=== PATIENT | female | born 1945 | race Caucasian/White ===

== ENCOUNTER → 2017-04-30 | Outpatient (CLI) | payer MEDICARE ==
--- NOTE | 2017-05-03 06:44 | MM ---
Reason for exam: clinical finding. Last mammogram was performed 11 months ago. History: Patient is postmenopausal. Family history of breast cancer in paternal aunt and breast cancer in cousin. Took estrogen for 16 years. Physical Findings: Nurse did not find any significant physical abnormalities on exam. MG 3D Diag Mammo W/Cad AMARA Bilateral CC and MLO view(s) were taken. Prior study comparison: May 25, 2016, bilateral MG 3d screening mammo w/cad. April 16, 2015, bilateral MG diagnostic yamini BI wo CAD. The breast tissue is extremely dense which could obscure a lesion on mammography. Finding: There are typically benign round, diffuse/scattered calcifications in both breasts. No significant changes in finding since May 25, 2016 and April 16, 2015. These results were verbally communicated with the patient and result sheet given to the patient on 04/30/17. ASSESSMENT: Benign, BI-RAD 2 RECOMMENDATION: Routine screening mammogram of both breasts in 1 year. Manage patient on a clinical basis.
== END | disposition home or self-care (01) ==
LOC: RADMAMWWP 13:40
PROVIDERS: ATTEND Family Medicine
DX: R92.8 Other abnormal and inconclusive findings on diagnostic imaging of breast (principal)
CPT/HCPCS: G0204; G0279

== ENCOUNTER 2018-03-25 20:54 | Emergency (ER) | payer MEDICARE ==
[2018-03-25 21:06] VITALS: BP 184/77; PULSE 66; RESP 20; TEMP 97.6
[2018-03-25] MEDS ORDERED: SODIUM CHLORIDE 0.9% 500 ML IV ONE (21:16)
--- NOTE | 2018-03-25 21:17 | ED ---
General Adult HPI - General Chief complaint: Recheck/Abnormal Lab/Rx Stated complaint: Abn labs Time Seen by Provider: 03/25/18 21:09 Source: patient, RN notes reviewed, old records reviewed Mode of arrival: ambulatory Limitations: no limitations - History of Present Illness Initial comments: 72-year-old female presenting for evaluation of hyperkalemia. Patient was called by her primary care physician and instructed to present to the emergency department with elevated potassium. Patient has no complaints. No chest pain or shortness breath. 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 No history of hypertension. She has been making urine normally. No nausea or vomiting. She does have some mild diarrhea which is also not abnormal for her. No fever or chills. - Related Data Home Medications Medication Instructions Recorded Confirmed Ascorbic Acid [Vitamin C] 500 mg PO DAILY 03/25/18 03/25/18 Calcium Carbonate [Calcium] 600 mg PO DAILY 03/25/18 03/25/18 Cyanocobalamin [Vitamin B-12] 500 mcg PO DAILY 03/25/18 03/25/18 Krill Oil 500 mg PO DAILY 03/25/18 03/25/18 Obeticholic Acid [Ocaliva] 5 mg PO DAILY 03/25/18 03/25/18 [place]-3 Fatty Acids/Fish Oil [Fish 1 cap PO DAILY 03/25/18 03/25/18 Oil 1,000 mg Softgel] Pantoprazole Sodium [Protonix] 40 mg PO DAILY 03/25/18 03/25/18 Ursodiol 900 mg PO DAILY 03/25/18 03/25/18 Vit C/E/Zn/Coppr/Lutein/Zeaxan 1 cap PO DAILY 03/25/18 03/25/18 [Preservision Areds 2 Softgel] Zolpidem [Ambien] 10 mg PO HS 03/25/18 03/25/18 Allergies Allergy/AdvReac Type Severity Reaction Status Date / Time No Known Allergies Allergy Verified 03/25/18 21:31 Review of Systems ROS Statement: Those systems with pertinent positive or pertinent negative responses have been documented in the HPI. ROS Other: All systems not noted in ROS Statement are negative. 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 Absent: tenderness, meningismus Respiratory exam: Present: normal lung sounds bilaterally. Absent: respiratory distress Cardiovascular Exam: Present: regular rate, normal rhythm GI/Abdominal exam: Present: soft, distended, tenderness (Mild generalized tenderness to palpation). Absent: guarding, rebound Extremities exam: Present: normal inspection, normal capillary refill. Absent: pedal edema, joint swelling Neurological exam: Present: alert, oriented X3, CN II-XII intact. Absent: motor sensory deficit Psychiatric exam: Present: normal affect, normal mood Skin exam: Present: warm, dry, intact. Absent: cyanosis, diaphoretic Course Vital Signs 03/25/18 21:01 Temperature 97.6 F Pulse Rate 66 Respiratory 20 Rate Blood Pressure 184/77 O2 Sat by Pulse 99 Oximetry Medical Decision Making - Medical Decision Making 72-year-old female presenting for elevated potassium on outpatient laboratory studies, patient had a potassium is 6.6. This level was redrawn and his normal 3.8. This does represent likely lab abnormality. Patient has no kidney disease , creatinine and BUS are normal. Urinalysis is clear. 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 Her white blood cell count is 1.8. She has an absolute neutrophil count of 800. She is informed of this and will follow-up with her liver specialist and primary care physician. She will return with fever. Diagnosis: Lab abnormality. - Lab Data Result diagrams: 03/25/18 21:25 03/25/18 21:25 Lab Results 03/25/18 03/25/18 03/25/18 Range/Units 21:25 21:25 21:25 WBC 1.9 L* (3.8-10.6) k/uL RBC 3.79 L (3.80-5.40) m/uL Hgb 10.8 L (11.4-16.0) gm/dL Hct 33.5 L (34.0-46.0) % MCV 88.4 (80.0-100.0) fL MCH 28.6 (25.0-35.0) pg MCHC 32.4 (31.0-37.0) g/dL RDW 13.9 (11.5-15.5) % Plt Count 87 L (150-450) k/uL Neutrophils % 40 % Lymphocytes % 41 % Monocytes % 11 % Eosinophils % 5 % Basophils % 0 % Neutrophils # 0.8 L (1.3-7.7) k/uL Lymphocytes # 0.8 L (1.0-4.8) k/uL Monocytes # 0.2 (0-1.0) k/uL Eosinophils # 0.1 (0-0.7) k/uL Basophils # 0.0 (0-0.2) k/uL Sodium 144 (137-145) mmol/L Potassium 3.8 (3.5-5.1) mmol/L Chloride 104 (98-107) mmol/L Carbon Dioxide 28 (22-30) mmol/L Anion Gap 12 mmol/L BUN 17 (7-17) mg/dL Creatinine 0.70 (0.52-1.04) mg/dL Est GFR (CKD-EPI)AfAm >90 (>60 ml/min/1.73 sqM) Est GFR (CKD-EPI)NonAf 88 (>60 ml/min/1.73 sqM) Glucose 107 H (74-99) mg/dL Calcium 9.0 (8.4-10.2) mg/dL Magnesium 2.0 (1.6-2.3) mg/dL Total Bilirubin 0.4 (0.2-1.3) mg/dL AST 41 H (14-36) U/L ALT 41 (9-52) U/L Alkaline Phosphatase 120 (38-126) U/L Total Protein 6.7 (6.3-8.2) g/dL Albumin 3.9 (3.5-5.0) g/dL Urine Color Yellow Urine Appearance Clear (Clear) Urine pH 6.0 (5.0-8.0) Ur Specific [place] 1.013 (1.001-1.035) Urine Protein Negative (Negative) Urine Glucose (UA) Negative (Negative) Urine Ketones Negative (Negative) Urine Blood Negative (Negative) Urine Nitrite Negative (Negative) Urine Bilirubin Negative (Negative) Urine Urobilinogen <2.0 (<2.0) mg/dL Ur Leukocyte Esterase Negative (Negative) Disposition Clinical Impression: Hyperkalemia Disposition: HOME SELF-CARE Condition: Good Additional Instructions: Please follow up with your liver specialist and primary care physician. Is patient prescribed a controlled substance at d/c from ED?: No Referrals: Jeff Brunson MD [Primary Care Provider] - 1-2 days Time of Disposition: 22:11
[2018-03-25 21:37] LABS: Basophils % (A) 0 %; Eosinophils # (A) 0.1 k/uL (0-0.7); Eosinophils % (A) 5 %; HCT 33.5 % (34.0-46.0); HGB 10.8 gm/dL (11.4-16.0); Lymphocytes # (A) 0.8 k/uL (1.0-4.8); Lymphocytes % (A) 41 %; MCH 28.6 pg (25.0-35.0); MCHC 32.4 g/dL (31.0-37.0); MCV 88.4 fL (80.0-100.0); Mean Platelet Volume 9.6; Monocytes # (A) 0.2 k/uL (0-1.0); Monocytes % (A) 11 %; Neutrophils # (A) 0.8 k/uL (1.3-7.7); Neutrophils % (A) 40 %; Platelet Count 87 k/uL (150-450); RBC 3.79 m/uL (3.80-5.40); RDW 13.9 % (11.5-15.5)
[2018-03-25 21:41] LABS: Appearance,Urine Clear (Clear); Bilirubin,Urine Negative (Negative); Blood,Urine Negative (Negative); Color,Urine Yellow; Glucose,Urine (UA) Negative (Negative); Ketones,Urine Negative (Negative); Leukocyte Esterase,Urine Negative (Negative); Nitrite,Urine Negative (Negative); Protein,Urine Negative (Negative); Specific Gravity,Urine 1.013 (1.001-1.035); Urobilinogen,Urine <2.0 mg/dL (<2.0)
[2018-03-25 21:48] LABS: WBC 1.9 k/uL (3.8-10.6)
[2018-03-25 21:49] LABS: ALT 41 U/L (9-52); AST 41 U/L (14-36); Albumin 3.9 g/dL (3.5-5.0); Alkaline Phosphatase 120 U/L (38-126); Anion Gap 12 mmol/L; Blood Urea Nitrogen 17 mg/dL (7-17); Carbon Dioxide 28 mmol/L (22-30); Chloride 104 mmol/L (98-107); Glucose 107 mg/dL (74-99); Potassium 3.8 mmol/L (3.5-5.1); Sodium 144 mmol/L (137-145); Total Bilirubin 0.4 mg/dL (0.2-1.3); Total Protein 6.7 g/dL (6.3-8.2)
== END 2018-03-25 22:20 | disposition home or self-care (01) ==
LOC: EC 20:54
DX: E87.5 Hyperkalemia (principal); R10.84 Generalized abdominal pain; R19.7 Diarrhea, unspecified; Z87.19 Personal history of other diseases of the digestive system; Z79.899 Other long term (current) drug therapy
CPT/HCPCS: 36415; 80053; 81003; 83735; 85025; 96360; 99284

== ENCOUNTER → 2018-05-09 | Outpatient (CLI) | payer MEDICARE ==
--- NOTE | 2018-05-09 14:07 | MM ---
Reason for exam: additional evaluation requested from prior study. Last mammogram was performed 1 year ago. History: Patient is postmenopausal. Family history of breast cancer in paternal aunt and breast cancer in cousin. Took estrogen for 16 years. Physical Findings: Nurse Summary: 2cm nodule in the right breast at 10-11 o'clock (nurse dw). MG 3D Diag Mammo W/Cad AMARA Bilateral CC and MLO view(s) were taken. Prior study comparison: April 30, 2017, bilateral MG 3d diag mammo w/cad AMARA. May 25, 2016, bilateral MG 3d screening mammo w/cad. The breast tissue is extremely dense which could obscure a lesion on mammography. There is no discrete abnormality at BB. No significant new findings when compared with previous films. These results were verbally communicated with the patient and result sheet given to the patient on 05/09/18. ASSESSMENT: Incomplete: need additional imaging evaluation, BI-RAD 0 RECOMMENDATION: Ultrasound of the right breast.
--- NOTE | 2018-05-09 14:09 | USB ---
Reason for exam: additional evaluation requested from abnormal screening. History: Patient is postmenopausal. Family history of breast cancer in paternal aunt and breast cancer in cousin. Took estrogen for 16 years. US Breast Limited RT Right complete breast ultrasound includes all four quadrants, the retroareolar region and axilla. Finding demonstrates no cystic or solid lesion seen. 11 o'clock palpable, dense tissue. These results were verbally communicated with the patient and result sheet given to the patient on 05/09/18. ASSESSMENT: Negative, BI-RAD 1 RECOMMENDATION: Routine screening mammogram of both breasts in 1 year. Manage patient on a clinical basis.
== END | disposition home or self-care (01) ==
LOC: RADMAMWWP 12:46
PROVIDERS: ATTEND Family Medicine
DX: R92.8 Other abnormal and inconclusive findings on diagnostic imaging of breast (principal)
CPT/HCPCS: 77066; 76642; G0279; 77062

== ENCOUNTER → 2018-08-09 | Outpatient (CLI) | payer MEDICARE ==
--- NOTE | 2018-08-09 16:15 | US ---
EXAMINATION TYPE: US kidneys/renal and bladder DATE OF EXAM: 08/09/2018 COMPARISON: CT abdomen and pelvis April 25, 2015 CLINICAL HISTORY: R31.9 Hematuria. Prior renal stones per patient history; liver disorder and enlarge d spleen per patient. EXAM MEASUREMENTS: Right Kidney: 9.2 x 4.9 x 4.8 cm Left Kidney: 10.0 x 4.9 x 4.1 cm Post Void Residual Volume: 11.1 mL Right Kidney: lower pole clustered calcification with posterior shadowing = 0.9 x 0.6 x 0.4c; mid la teral pole shadowing calcification noted = 0.6 x 0.4 x 0.4cm Left Kidney: superior pole simple cyst is noted =1.1 x 0.8 x 1.0cm; superior pole central sinus fluid is seen Bladder: wnl Bilateral Jets seen: yes Normal Post Void Residual: yes There is no evidence for hydronephrosis at this point in time. The urinary bladder is anechoic. Bila teral ureteral jets are seen. IMPRESSION: Redemonstration of nonobstructing right renal calculi. No hydronephrosis is evident bilaterally.
== END | disposition home or self-care (01) ==
LOC: RADUSWWP 15:24
PROVIDERS: ATTEND Family Medicine
DX: N20.0 Calculus of kidney (principal)
CPT/HCPCS: 76770

== ENCOUNTER → 2018-08-09 | Outpatient (CLI) | payer MEDICARE ==
[2018-08-09 17:00] LABS: HCT 37.7 % (34.0-46.0); MCH 29.7 pg (25.0-35.0); MCHC 31.9 g/dL (31.0-37.0); Mean Platelet Volume 8.3; RBC 4.05 m/uL (3.80-5.40); RDW 14.8 % (11.5-15.5); WBC 2.5 k/uL (3.8-10.6)
[2018-08-09 17:11] LABS: Prothrombin Time 9.8 sec (9.0-12.0)
[2018-08-09 17:13] LABS: ALT 39 U/L (9-52); AST 39 U/L (14-36); Albumin 4.1 g/dL (3.5-5.0); Alkaline Phosphatase 150 U/L (38-126); Anion Gap 7 mmol/L; Bilirubin, Delta 0.1 mg/dL (0.0-0.2); Bilirubin,Unconjugated 0.8 mg/dL (0.0-1.1); Blood Urea Nitrogen 14 mg/dL (7-17); Calcium 8.9 mg/dL (8.4-10.2); Carbon Dioxide 28 mmol/L (22-30); Chloride 104 mmol/L (98-107); Glucose 96 mg/dL (74-99); Potassium 4.2 mmol/L (3.5-5.1); Sodium 139 mmol/L (137-145); Total Bilirubin 0.9 mg/dL (0.2-1.3); Total Protein 7.3 g/dL (6.3-8.2)
[2018-08-09 18:38] LABS: Platelet Count 81 k/uL (150-450)
== END ==
LOC: LABWHC1 16:09
PROVIDERS: ATTEND Internal Medicine Gastroenterology
DX: K74.3 Primary biliary cirrhosis (principal)
CPT/HCPCS: 36415; 80048; 80076; 82105; 85027; 85610

== ENCOUNTER → 2018-10-11 | Outpatient (CLI) | payer MEDICARE ==
[2018-10-11 13:48] LABS: Basophils % (A) 1 %; Eosinophils # (A) 0.1 k/uL (0-0.7); Eosinophils % (A) 4 %; HCT 37.7 % (34.0-46.0); HGB 12.1 gm/dL (11.4-16.0); Lymphocytes # (A) 0.7 k/uL (1.0-4.8); Lymphocytes % (A) 34 %; MCH 30.6 pg (25.0-35.0); MCHC 32.1 g/dL (31.0-37.0); MCV 95.5 fL (80.0-100.0); Mean Platelet Volume 9.6; Monocytes # (A) 0.2 k/uL (0-1.0); Monocytes % (A) 9 %; Neutrophils % (A) 50 %; RBC 3.95 m/uL (3.80-5.40); RDW 13.9 % (11.5-15.5); WBC 2.1 k/uL (3.8-10.6)
[2018-10-11 13:52] LABS: Platelet Count 84 k/uL (150-450)
== END | disposition home or self-care (01) ==
LOC: LABWHC1 12:18
PROVIDERS: ATTEND Internal Medicine
DX: D61.818 Other pancytopenia (principal)
CPT/HCPCS: 36415; 85025

== ENCOUNTER 2019-04-10 09:36 | Inpatient (IN) | payer MEDICARE ==
[2019-04-10] MEDS ORDERED: SODIUM CHLORIDE 0.9% 1,000 ML IV ONE (10:16)
--- NOTE | 2019-04-10 10:20 | ED ---
Recheck HPI - General Chief Complaint: Recheck/Abnormal Lab/Rx Stated Complaint: Fever/poss uti Time Seen by Provider: 04/10/19 10:06 Source: patient Mode of arrival: ambulatory Limitations: no limitations - History of Present Illness Initial Comments: 73-year-old female presenting today for chief complaint of fever. Patient states that she has history of primary biliary cirrhosis, and recent leukopenia of unknown origin presenting today for chief complaint of fever and UTI symptoms. Patient states that for the past week she has had dysuria urgency frequency she states she began to develop low midline belly pain and back pain. She describes the pain as a pressure in the mid abdomen without radiation, with aching pain in the b/l mid/lower back on the sides. She states she feels this is in the kidney region. Patient states that this feels identical to when she's had a urinary tract infection in the past. Patient states that she was told by her agricultural equipment sales engineer Dr. Dominguez issues ever to develop a fever due to her low white blood cell count she needs to presents to the emergency department. Patient states that her temperature was >100.5F this AM and she presented to the ER for treatment and evaluation. Patient states she does have some nausea she states this is typical of her biliary cirrhosis. Patient denies any new upper abdominal pain she states she does have a history of splenomegaly, and chronic upper abdominal pain due to the liver cirrhosis. Patient denies any chest pain shortness of breath and dizziness headache vomiting melena hematochezia diarrhea or abdominal distention cough congestion sore throat, remaining review of system negative. - Related Data Home Medications Medication Instructions Recorded Confirmed Ascorbic Acid [Vitamin C] 500 mg PO DAILY 03/25/18 04/10/19 Calcium Carbonate [Calcium] 600 mg PO DAILY 03/25/18 04/10/19 Cyanocobalamin [Vitamin B-12] 500 mcg PO DAILY 03/25/18 04/10/19 Krill Oil 500 mg PO DAILY 03/25/18 04/10/19 Obeticholic Acid [Ocaliva] 5 mg PO DAILY 03/25/18 04/10/19 [place]-3 Fatty Acids/Fish Oil [Fish 1 cap PO DAILY 03/25/18 04/10/19 Oil 1,000 mg Softgel] Ursodiol 900 mg PO DAILY 03/25/18 04/10/19 Vit C/E/Zn/Coppr/Lutein/Zeaxan 1 cap PO DAILY 03/25/18 04/10/19 [Preservision Areds 2 Softgel] Zolpidem [Ambien] 10 mg PO HS 03/25/18 04/10/19 PARoxetine HCL [Paxil] 40 mg PO DAILY 04/10/19 04/10/19 Allergies Allergy/AdvReac Type Severity Reaction Status Date / Time No Known Allergies Allergy Verified 04/10/19 10:16 Review of Systems ROS Statement: Those systems with pertinent positive or pertinent negative responses have been documented in the HPI. ROS Other: All systems not noted in ROS Statement are negative. Past Medical History Additional Past Medical History / Comment(s): primary biliary cirrhosis History of Any Multi-Drug Resistant Organisms: None Reported Past Surgical History: Hysterectomy, Orthopedic Surgery Past Psychological History: No Psychological Hx Reported Smoking Status: Never smoker Past Alcohol Use History: None Reported Past Drug Use History: None Reported General Exam - General Exam Comments Initial Comments: General: The patient is awake and alert, in no distress Eye: +3 mm pupils are equal, round and reactive to light, extra-ocular movements are intact. No nystagmus. There is normal conjunctiva bilaterally. No signs of icterus. No photophobia Ears, nose, mouth and throat: There are moist mucous membranes and no oral lesions. Oropharynx was not erythematous there is no tonsillar enlargement exudates or lesions. Uvula midline. TNo anterior cervical lymphadenopathy. No rhinorrhea. Neck: The neck is supple, there is no tenderness or JVD. No nuchal rigidity negative Brudzinski and Kernig Cardiovascular: There is a regular rate and rhythm. No murmur, rub or gallop is appreciated. Respiratory: Lungs are clear to auscultation, respirations are non-labored, breath sounds are equal. No wheezes, stridor, rales, or rhonchi. No retractions or abdominal breathing. Gastrointestinal: Soft, non-distended, superior lateral margin mildly tender to palpation remaining abdomen without tenderness, masses or organomegaly noted. There is no rebound or guarding present. Bowel sounds are unremarkable. Musculoskeletal: Normal ROM, no tenderness. Strength 5/5. Sensation intact. Radial pulses equal bilaterally 2+. Neurological: A&O x 3. CN II-XII intact, There are no obvious motor or sensory deficits. Coordination appears grossly intact. Speech appears normal, no muffling. Skin: Skin is warm and dry and no rashes or lesions are noted. No extremity edema Psychiatric: Cooperative Limitations: no limitations Course Vital Signs 04/10/19 04/10/19 04/10/19 09:41 11:45 13:41 Temperature 101.1 F H 100.1 F H 98.5 F Pulse Rate 77 72 75 Respiratory 18 20 20 Rate Blood Pressure 129/67 117/56 109/55 O2 Sat by Pulse 95 100 98 Oximetry Medical Decision Making - Medical Decision Making 73-year-old female presenting today for chief complaint of dysuria or urgency frequency. Patient amidst a fever. Patient states she has had recent appointment with hematology due to low white blood cell count. Upon arrival patient is febrile. Urinalysis revealed nitrates and findings consistent with infection possible developing pyelonephritis. Patient is given ceftriaxone emergency department. Patient states that 4.1 is an elevation compared for normal white blood cell count. Patient has noted mild hypokalemia, as well as hyponatremia. Potassium was replaced orally. Remaining laboratory studies within acceptable limits. Pt provided with IV hydration in the ER. Does not appear toxic/does not meet SIRS criteria. Patient appears well no signs of acute distress. Patient is provided ibuprofen for fever management as patient has no primary biliary cirrhosis, will avoid Tylenol use. After discussing the case by attending provider Dr. Jewell we feel patient should be admitted for IV antibiotics. Patient is agreeable with Plan and admission. Blood cultures are pending. Dr. Jewell spoke with the admitting provider Dr. Sweeney prior to patient transfer to the floor. - Lab Data Result diagrams: 04/10/19 10:53 04/10/19 10:53 Lab Results 04/10/19 04/10/19 04/10/19 Range/Units 10:53 10:53 10:53 WBC 4.1 (3.8-10.6) k/uL RBC 3.40 L (3.80-5.40) m/uL Hgb 9.9 L (11.4-16.0) gm/dL Hct 29.2 L (34.0-46.0) % MCV 85.8 (80.0-100.0) fL MCH 29.2 (25.0-35.0) pg MCHC 34.0 (31.0-37.0) g/dL RDW 14.8 (11.5-15.5) % Plt Count 60 L (150-450) k/uL Neutrophils % 76 % Lymphocytes % 9 % Monocytes % 10 % Eosinophils % 3 % Basophils % 0 % Neutrophils # 3.1 (1.3-7.7) k/uL Lymphocytes # 0.4 L (1.0-4.8) k/uL Monocytes # 0.4 (0-1.0) k/uL Eosinophils # 0.1 (0-0.7) k/uL Basophils # 0.0 (0-0.2) k/uL Manual Slide Review Performed PT (9.0-12.0) sec INR (<1.2) APTT (22.0-30.0) sec Sodium 134 L (137-145) mmol/L Potassium 3.3 L (3.5-5.1) mmol/L Chloride 102 (98-107) mmol/L Carbon Dioxide 24 (22-30) mmol/L Anion Gap 8 mmol/L BUN 11 (7-17) mg/dL Creatinine 0.57 (0.52-1.04) mg/dL Est GFR (CKD-EPI)AfAm >90 (>60 ml/min/1.73 sqM) Est GFR (CKD-EPI)NonAf >90 (>60 ml/min/1.73 sqM) Glucose 93 (74-99) mg/dL Plasma Lactic Acid Kb 0.7 (0.7-2.0) mmol/L Calcium 8.4 (8.4-10.2) mg/dL Total Bilirubin 1.7 H (0.2-1.3) mg/dL AST 31 (14-36) U/L ALT 30 (9-52) U/L Alkaline Phosphatase 127 H (38-126) U/L Total Protein 6.4 (6.3-8.2) g/dL Albumin 3.5 (3.5-5.0) g/dL Urine Color Urine Appearance (Clear) Urine pH (5.0-8.0) Ur Specific [place] (1.001-1.035) Urine Protein (Negative) Urine Glucose (UA) (Negative) Urine Ketones (Negative) Urine Blood (Negative) Urine Nitrite (Negative) Urine Bilirubin (Negative) Urine Urobilinogen (<2.0) mg/dL Ur Leukocyte Esterase (Negative) Urine RBC (0-5) /hpf Urine WBC (0-5) /hpf Urine WBC Clumps (None) /hpf Ur Squamous Epith Cells (0-4) /hpf Urine Bacteria (None) /hpf Urine Mucus (None) /hpf 04/10/19 04/10/19 Range/Units 10:53 10:53 WBC (3.8-10.6) k/uL RBC (3.80-5.40) m/uL Hgb (11.4-16.0) gm/dL Hct (34.0-46.0) % MCV (80.0-100.0) fL MCH (25.0-35.0) pg MCHC (31.0-37.0) g/dL RDW (11.5-15.5) % Plt Count (150-450) k/uL Neutrophils % % Lymphocytes % % Monocytes % % Eosinophils % % Basophils % % Neutrophils # (1.3-7.7) k/uL Lymphocytes # (1.0-4.8) k/uL Monocytes # (0-1.0) k/uL Eosinophils # (0-0.7) k/uL Basophils # (0-0.2) k/uL Manual Slide Review PT 10.3 (9.0-12.0) sec INR 1.0 (<1.2) APTT 23.8 (22.0-30.0) sec Sodium (137-145) mmol/L Potassium (3.5-5.1) mmol/L Chloride (98-107) mmol/L Carbon Dioxide (22-30) mmol/L Anion Gap mmol/L BUN (7-17) mg/dL Creatinine (0.52-1.04) mg/dL Est GFR (CKD-EPI)AfAm (>60 ml/min/1.73 sqM) Est GFR (CKD-EPI)NonAf (>60 ml/min/1.73 sqM) Glucose (74-99) mg/dL Plasma Lactic Acid Kb (0.7-2.0) mmol/L Calcium (8.4-10.2) mg/dL Total Bilirubin (0.2-1.3) mg/dL AST (14-36) U/L ALT (9-52) U/L Alkaline Phosphatase (38-126) U/L Total Protein (6.3-8.2) g/dL Albumin (3.5-5.0) g/dL Urine Color Yellow Urine Appearance Cloudy H (Clear) Urine pH 6.5 (5.0-8.0) Ur Specific [place] 1.016 (1.001-1.035) Urine Protein 1+ H (Negative) Urine Glucose (UA) Negative (Negative) Urine Ketones 2+ H (Negative) Urine Blood Moderate H (Negative) Urine Nitrite Positive H (Negative) Urine Bilirubin Negative (Negative) Urine Urobilinogen <2.0 (<2.0) mg/dL Ur Leukocyte Esterase Large H (Negative) Urine RBC >182 H (0-5) /hpf Urine WBC >182 H (0-5) /hpf Urine WBC Clumps Many H (None) /hpf Ur Squamous Epith Cells 2 (0-4) /hpf Urine Bacteria Moderate H (None) /hpf Urine Mucus Rare H (None) /hpf Disposition Clinical Impression: UTI (urinary tract infection), Fever, Hypokalemia, Hyponatremia Disposition: HOME SELF-CARE Condition: Good Is patient prescribed a controlled substance at d/c from ED?: No Time of Disposition: 12:16 Decision to Admit Reason: Admit from EC Decision Date: 04/10/19 Decision Time: 12:16
[2019-04-10] MEDS ORDERED: IBUPROFEN 600 MG TAB PO STA (10:24)
[2019-04-10 11:08] LABS: Basophils % (A) 0 %; Eosinophils # (A) 0.1 k/uL (0-0.7); Eosinophils % (A) 3 %; HCT 29.2 % (34.0-46.0); HGB 9.9 gm/dL (11.4-16.0); Lymphocytes # (A) 0.4 k/uL (1.0-4.8); Lymphocytes % (A) 9 %; MCH 29.2 pg (25.0-35.0); MCV 85.8 fL (80.0-100.0); Monocytes # (A) 0.4 k/uL (0-1.0); Monocytes % (A) 10 %; Neutrophils # (A) 3.1 k/uL (1.3-7.7); Neutrophils % (A) 76 %; RDW 14.8 % (11.5-15.5); WBC 4.1 k/uL (3.8-10.6)
[2019-04-10 11:16] LABS: ALT 30 U/L (9-52); AST 31 U/L (14-36); Albumin 3.5 g/dL (3.5-5.0); Anion Gap 8 mmol/L; Blood Urea Nitrogen 11 mg/dL (7-17); Calcium 8.4 mg/dL (8.4-10.2); Carbon Dioxide 24 mmol/L (22-30); Chloride 102 mmol/L (98-107); Glucose 93 mg/dL (74-99); Potassium 3.3 mmol/L (3.5-5.1); Sodium 134 mmol/L (137-145); Total Bilirubin 1.7 mg/dL (0.2-1.3); Total Protein 6.4 g/dL (6.3-8.2)
[2019-04-10 11:17] LABS: Alkaline Phosphatase 127 U/L (38-126)
[2019-04-10 11:22] LABS: Partial Thromboplastin Time 23.8 sec (22.0-30.0); Prothrombin Time 10.3 sec (9.0-12.0)
[2019-04-10 11:30] LABS: Platelet Count 60 k/uL (150-450)
[2019-04-10 11:46] LABS: Appearance,Urine Cloudy (Clear); Bacteria,Urine Moderate /hpf; Bilirubin,Urine Negative (Negative); Blood,Urine Moderate (Negative); Color,Urine Yellow; Glucose,Urine (UA) Negative (Negative); Ketones,Urine 2+ (Negative); Leukocyte Esterase,Urine Large (Negative); Mucus,Urine Rare /hpf; Nitrite,Urine Positive (Negative); PH, Urine 6.5 (5.0-8.0); Protein,Urine 1+ (Negative); RBC,Urine >182 /hpf (0-5); Specific Gravity,Urine 1.016 (1.001-1.035); Squamous Epithelial Cell,Urine 2 /hpf (0-4); Urobilinogen,Urine <2.0 mg/dL (<2.0); WBC,Urine >182 /hpf (0-5)
[2019-04-10] MEDS ORDERED: NALOXONE 0.4 MG/ML 1 ML VIAL IV PRN (12:14)
[2019-04-10] MEDS ORDERED: POTASSIUM CHLORIDE ER 10 MEQ TAB.ER.PRT PO STA (12:16)
[2019-04-10] MEDS: SODIUM CHLORIDE 0.9% 1,000 ML IV SCH (12:44)
--- NOTE | 2019-04-10 13:11 | P.HPIM ---
History of Present Illness Chief Complaint: Fever, suprapubic tenderness This very pleasant [age]-year-old female with a past medical history significant for leukopenia, family biliary cirrhosis, comes into the ER for above-mentioned complaint. The patient says that she was told by her property and casualty insurance agent/oncologist in [facility] who she follows for leukopenia to go to the ER if her temperature is more than 100.5. At home she was having temperature of 102. She also says that she's been having pain in the suprapubic area for the past few days also she is feeling pain in her bilateral kidneys as well. She said that she's been having nausea but she did not throw up. She otherwise does not complain of any abdominal pain anywhere else, no chest pain or racing heart, no cough no shortness of breath, no tingling numbness on in the extremities, and additional rest. She does not complain of any one sick around her. Next ER course-patient's temperature over here was 101.1 pulse 77 respiration 18 blood pressure 129/67 satting 95%. Labwork was done which showed WBC 4.1 hemoglobin 9.9 platelets 60 sodium 1:30 potassium 3.3 bun 11 creatinine 0.57 GFR more than 90 total bilirubin was 1.7 alk phos 127 AST 31 ALT 30 lactic acid was 0.7 UA shows more than 182 WBCs. Patient was given IV fluids, started on Rocephin and admitted to the hospitalist service a further evaluation and management. Review of Systems All systems: negative Past Medical History Additional Past Medical History / Comment(s): primary biliary cirrhosis History of Any Multi-Drug Resistant Organisms: None Reported Past Surgical History: Hysterectomy, Orthopedic Surgery Past Psychological History: No Psychological Hx Reported Smoking Status: Never smoker Past Alcohol Use History: None Reported Past Drug Use History: None Reported Medications and Allergies Home Medications Medication Instructions Recorded Confirmed Type Ascorbic Acid [Vitamin C] 500 mg PO DAILY 03/25/18 04/10/19 History Calcium Carbonate [Calcium] 600 mg PO DAILY 03/25/18 04/10/19 History Cyanocobalamin [Vitamin B-12] 500 mcg PO DAILY 03/25/18 04/10/19 History Krill Oil 500 mg PO DAILY 03/25/18 04/10/19 History Obeticholic Acid [Ocaliva] 5 mg PO DAILY 03/25/18 04/10/19 History [place]-3 Fatty Acids/Fish Oil [Fish 1 cap PO DAILY 03/25/18 04/10/19 History Oil 1,000 mg Softgel] Ursodiol 900 mg PO DAILY 03/25/18 04/10/19 History Vit C/E/Zn/Coppr/Lutein/Zeaxan 1 cap PO DAILY 03/25/18 04/10/19 History [Preservision Areds 2 Softgel] Zolpidem [Ambien] 10 mg PO HS 03/25/18 04/10/19 History PARoxetine HCL [Paxil] 40 mg PO DAILY 04/10/19 04/10/19 History Allergies Allergy/AdvReac Type Severity Reaction Status Date / Time No Known Allergies Allergy Verified 04/10/19 10:16 Physical Exam Vitals: Vital Signs Temp Pulse Resp BP Pulse Ox 04/10/19 11:45 100.1 F H 72 20 117/56 100 04/10/19 09:41 101.1 F H 77 18 129/67 95 Intake and Output 04/09/19 04/10/19 04/10/19 22:59 06:59 14:59 Other: Weight 45.359 kg On exam, alert and oriented x3. HEENT: Conjunctivae normal. eyes normal. NECK: No JVD. No thyroid enlargement. No LNs CARDIOVASCULAR: S1, S2 muffled. No murmur RESPIRATION: Breath sounds diminished in the bases. No rhonchi or crackles. No bronchial breathing. ABDOMEN: Soft, suprapubic tenderness and bilateral flank tenderness appreciated.. LEGS: No edema. no swelling NERVOUS SYSTEM: Cranial N 2-12 grossly normal. Moves all 4 limbs. No focal deficits. No sensory deficit. No signs of cerebellar dysfucntion. Skin: no ulcer no rash Joints: No active swelling. No inflammation. Lymphatic system. No LN neck axilla or groin. Results CBC & Chem 7: 04/10/19 10:53 04/10/19 10:53 Labs: Abnormal Lab Results - Last 24 Hours (Table) 04/10/19 04/10/19 04/10/19 Range/Units 10:53 10:53 10:53 RBC 3.40 L (3.80-5.40) m/uL Hgb 9.9 L (11.4-16.0) gm/dL Hct 29.2 L (34.0-46.0) % Plt Count 60 L (150-450) k/uL Lymphocytes # 0.4 L (1.0-4.8) k/uL Sodium 134 L (137-145) mmol/L Potassium 3.3 L (3.5-5.1) mmol/L Total Bilirubin 1.7 H (0.2-1.3) mg/dL Alkaline Phosphatase 127 H (38-126) U/L Urine Appearance Cloudy H (Clear) Urine Protein 1+ H (Negative) Urine Ketones 2+ H (Negative) Urine Blood Moderate H (Negative) Urine Nitrite Positive H (Negative) Ur Leukocyte Esterase Large H (Negative) Urine RBC >182 H (0-5) /hpf Urine WBC >182 H (0-5) /hpf Urine WBC Clumps Many H (None) /hpf Urine Bacteria Moderate H (None) /hpf Urine Mucus Rare H (None) /hpf Assessment and Plan Assessment: - Fever - UTI - Hypo kalemia - History of leukopenia - History of primary biliary cirrhosis Plan - We'll admit the patient to [facility] with telemetry - We'll continue IV fluids - We'll continue Rocephin - Await urine culture results - We'll continue home medications when medications are updated in the computer - DVT prophylaxis SCDs. Her platelet counts a pretty low. GI prophylaxis with Prilosec - We'll order for lab work in the morning - Expected length of stay more than 2 midnights - Patient is full code Time with Patient: Greater than 30
[2019-04-10] MEDS ORDERED: IOPAMIDOL-300 CONTRAST 30 ML VIAL (ORAL USE) PO PRN (13:12)
[2019-04-10 14:12] VITALS: BMI 19.5
--- NOTE | 2019-04-10 15:36 | CT ---
EXAMINATION TYPE: CT abdomen pelvis wo con DATE OF EXAM: 04/10/2019 COMPARISON: HISTORY: Bilateral flank pain. CT DLP: 449 mGycm Automated exposure control for dose reduction was used. TECHNIQUE: Helical acquisition of images from the lung bases through the pelvis. Oral contrast only. FINDINGS: Lack of intravenous contrast could compromise sensitivity. LUNG BASES: No significant abnormality is appreciated. AORTA: No significant abnormality is appreciated. LIVER/GB: Liver shows a nodular appearance likely due to cirrhosis. Small amount of ascites is presen t adjacent to the liver.. PANCREAS: No significant abnormality is seen. SPLEEN: Spleen is enlarged. ADRENALS: No significant abnormality is seen. KIDNEYS: Calcifications are present in the right kidney which are nonobstructive, larger at the lower pole measures 9 mm. 2 calcifications also noted the lower pole the left kidney measuring approximate ly 5-7 mm in greatest dimension are nonobstructive REPRODUCTIVE ORGANS: No significant abnormality is seen. URINARY BLADDER: No significant abnormality is seen. BOWEL: The colon shows wall thickening along the ascending colon and cecum regions. No evident bowel obstruction some small bowel folds also show thickening. FREE AIR: No Free Air is visible. ASCITES: There is free fluid in the pelvis PELVIC ADENOPATHY: None visualized. RETROPERITONEAL ADENOPATHY: No Retroperitoneal Adenopathy visible. OSSEOUS STRUCTURES: No significant abnormality is seen. IMPRESSION: BILATERAL NEPHROLITHIASIS. CIRRHOSIS, SPLENOMEGALY. SMALL AMOUNT OF ASCITES. CORRELATE TO EXCLUDE ENT ERITIS, COLITIS.
[2019-04-10] MEDS: IBUPROFEN 400 MG TAB PO PRN (16:52)
[2019-04-10] MEDS ORDERED: IBUPROFEN 800 MG TAB PO STA (20:24)
[2019-04-10] MEDS ORDERED: IBUPROFEN 400 MG TAB PO STA (20:36)
[2019-04-10] MEDS: MORPHINE SULFATE 2 MG/ML SYRINGE IVP PRN (20:37)
[2019-04-10] MEDS: ONDANSETRON 4 MG/2 ML VIAL IVP PRN (20:38)
[2019-04-10] MEDS: ZOLPIDEM 5 MG TAB PO PRN (21:49)
[2019-04-11] MEDS: SODIUM CHLORIDE 0.9% 1,000 ML IV SCH ×4 (00:08→22:08)
[2019-04-11] MEDS: MORPHINE SULFATE 2 MG/ML SYRINGE IVP PRN ×5 (03:30→21:07)
[2019-04-11] MEDS: IBUPROFEN 400 MG TAB PO PRN ×3 (03:30→19:55)
[2019-04-11] MEDS: PANTOPRAZOLE 40 MG TABLET PO SCH (06:24)
[2019-04-11] MEDS: ONDANSETRON 4 MG/2 ML VIAL IVP PRN ×2 (09:02→16:58)
[2019-04-11] MEDS ORDERED: OBETICHOLIC ACID 5 MG PO SCH (14:15)
[2019-04-11] MEDS: CYANOCOBALAMIN 500 MCG TAB PO SCH (15:16)
[2019-04-11] MEDS: OCALIVA PO SCH (15:16)
[2019-04-11] MEDS: URSODIOL 300 MG CAP PO SCH (15:17)
[2019-04-11] MEDS: POLYETHYLENE GLYCOL 3350 17 GM POWD.PACK PO SCH (15:19)
[2019-04-11] MEDS: PARoxetine 20 MG TAB PO SCH (15:19)
[2019-04-11] MEDS: ZOLPIDEM 5 MG TAB PO PRN (19:55)
[2019-04-12] MEDS: MORPHINE SULFATE 2 MG/ML SYRINGE IVP PRN ×4 (01:05→19:08)
[2019-04-12] MEDS: SODIUM CHLORIDE 0.9% 1,000 ML IV SCH (06:49)
[2019-04-12] MEDS: PANTOPRAZOLE 40 MG TABLET PO SCH (06:49)
[2019-04-12] MEDS: ASCORBIC ACID 500 MG TAB PO SCH (09:01)
[2019-04-12] MEDS: CALCIUM CARBONATE 500 MG CHEWABLE PO SCH (09:01)
[2019-04-12] MEDS: OCALIVA PO SCH (09:02)
[2019-04-12] MEDS: VIT A,C & E-LUTEIN-MINERALS 1 EACH TAB PO SCH (09:03)
[2019-04-12] MEDS: URSODIOL 300 MG CAP PO SCH (09:03)
[2019-04-12] MEDS: POLYETHYLENE GLYCOL 3350 17 GM POWD.PACK PO SCH (09:03)
[2019-04-12] MEDS: PARoxetine 20 MG TAB PO SCH (09:03)
[2019-04-12] MEDS ORDERED: FUROSEMIDE 10 MG/ML 2 ML VIAL IV STA (09:31)
[2019-04-12] MEDS: NON-FORMULARY DRUG (Krill Oil [Krill Oil] 500 MG) PO SCH (09:45)
[2019-04-12] MEDS: NON-FORMULARY DRUG (Omega-3 Fatty Acids/Fish Oil [Fish Oil 1,000 Mg Softgel] 1 CAP) PO SCH (09:46)
[2019-04-12] MEDS: CYANOCOBALAMIN 500 MCG TAB PO SCH (09:46)
--- NOTE | 2019-04-12 09:55 | XR ---
EXAMINATION TYPE: XR chest 1V portable DATE OF EXAM: 04/12/2019 COMPARISON: NONE HISTORY: Shortness of breath TECHNIQUE: Frontal and lateral views of the chest are obtained. FINDINGS: Scattered senescent parenchymal changes noted. Hyperinflation compatible with COPD. Chronic elevation right hemidiaphragm. Chronic interstitial changes noted. There is evidence of cardiomegaly. Mediastinal structures are stable and grossly unremarkable. No evidence for hilar prominence. Degenerative changes dorsal spine. IMPRESSION: 1. No evidence for acute pulmonary disease.
[2019-04-12 09:58] LABS: Anion Gap 6 mmol/L; Blood Urea Nitrogen 9 mg/dL (7-17); Calcium 7.9 mg/dL (8.4-10.2); Carbon Dioxide 26 mmol/L (22-30); Chloride 110 mmol/L (98-107); Glucose 93 mg/dL (74-99); Potassium 4.2 mmol/L (3.5-5.1); Sodium 142 mmol/L (137-145)
[2019-04-12] MEDS ORDERED: LEVOFLOXACIN 500 MG TAB PO SCH (10:00)
[2019-04-12 10:01] LABS: HCT 29.9 % (34.0-46.0); HGB 9.6 gm/dL (11.4-16.0); Hypochromasia Slight; MCH 28.8 pg (25.0-35.0); MCHC 32.1 g/dL (31.0-37.0); Mean Platelet Volume 8.8; RBC 3.32 m/uL (3.80-5.40); RDW 14.9 % (11.5-15.5); WBC 2.8 k/uL (3.8-10.6)
[2019-04-12 10:04] LABS: Platelet Count 68 k/uL (150-450)
--- NOTE | 2019-04-12 10:46 | P.PN ---
Subjective Progress Note Date: 04/11/19 Principal diagnosis: Acute urinary tract infection This very pleasant [age]-year-old female with a past medical history significant for leukopenia, family biliary cirrhosis, comes into the ER for above-mentioned complaint. The patient says that she was told by her night order selector/[facility]cologist [facility] to go to the ER if her temperature is more than 100.5. At home she was having temperature of 102. She also says that she's been having pain in the suprapubic area for the past few days also she is feeling pain in her bilateral kidneys as well. She said that she's been having nausea but she did not throw up. She otherwise does not complain of any abdominal pain anywhere else, no chest pain or racing heart, no cough no shortness of breath, no tingling numbness on in the extremities, and additional rest. She does not complain of any one sick around her. Next ER course-patient's temperature over here was 101.1 pulse 77 respiration 18 blood pressure 129/67 satting 95%. Labwork was done which showed WBC 4.1 hemoglobin 9.9 platelets 60 sodium 1:30 potassium 3.3 bun 11 creatinine 0.57 GFR more than 90 total bilirubin was 1.7 alk phos 127 AST 31 ALT 30 lactic acid was 0.7 UA shows more than 182 WBCs. Patient was given IV fluids, started on Rocephin and admitted to the hospitalist service a further evaluation and management. 04/11/2019 Patient is still complaining of lower abdominal pain. No nausea or vomiting. Patient has been afebrile otherwise. Urine culture is pending. Patient will be continued on ceftriaxone currently. No compressive chest pain or shortness of breath. Home medications for her primary biliary cirrhosis will be continued. Awaiting final culture report. Current medications reviewed. Objective - Vital Signs Vital signs: Vital Signs Temp 99.1 F 04/11/19 13:45 Pulse 75 04/11/19 12:04 Resp 16 04/11/19 12:04 BP 110/77 04/11/19 12:04 Pulse Ox 92 L 04/11/19 12:04 Intake & Output 04/10/19 04/11/19 04/11/19 18:59 06:59 18:59 Intake Total 900 1400 Output Total 880 1450 Balance 20 -50 Weight 45.359 kg Intake: Oral 900 1400 Output: Urine 880 1450 Other: Voiding Method Toilet Toilet # Voids 1 3 3 # Bowel Movements 1 - Exam On exam, alert and oriented x3. HEENT: Conjunctivae normal. eyes normal. NECK: No JVD. No thyroid enlargement. No LNs CARDIOVASCULAR: S1, S2 muffled. No murmur RESPIRATION: Breath sounds diminished in the bases. No rhonchi or crackles. No bronchial breathing. ABDOMEN: Soft, suprapubic tenderness and bilateral flank tenderness appreciated.. LEGS: No edema. no swelling NERVOUS SYSTEM: Cranial N 2-12 grossly normal. Moves all 4 limbs. No focal deficits. No sensory deficit. No signs of cerebellar dysfucntion. Skin: no ulcer no rash Joints: No active swelling. No inflammation. Lymphatic system. No LN neck axilla or groin. - Labs CBC & Chem 7: 04/12/19 09:32 04/12/19 09:32 Labs: Microbiology - Last 24 Hours (Table) 04/10/19 10:53 Blood Culture - Preliminary Blood No Growth after 24 hours 04/10/19 10:53 Urine Culture - Preliminary Urine,Voided Assessment and Plan Assessment: - Fever. Resolved - Acute UTI - Hypo kalemia - History of leukopenia - History of primary biliary cirrhosis Plan Patient will be continued on antibiotics in the form of ceftriaxone 1 g daily. Follow up final culture reports. Gentle hydration. Continue with home medications. Continue with stool softeners. - We'll continue home medications when medications are updated in the computer - DVT prophylaxis SCDs. Her platelet counts a pretty low. GI prophylaxis with Prilosec - We'll order for lab work in the morning - Expected length of stay more than 2 midnights - Patient is full code Time with Patient: Greater than 30
[2019-04-12 11:31] LABS: Eosinophils # (M) 0.11 k/uL (0-0.7); Lymphocytes # (M) 0.42 k/uL (1.0-4.8); Monocytes # (M) 0.45 k/uL (0-1.0); Neutrophils # (M) 1.82 k/uL (1.3-7.7); Neutrophils % (M) 65 %; Nucleated Red Blood Cells 0 /100 WBC (0-0); Total Cells Counted 100
[2019-04-12] MEDS: IBUPROFEN 400 MG TAB PO PRN (12:13)
--- NOTE | 2019-04-12 12:23 | P.PN ---
Subjective Patient resting in bed continues complaining of chills not feeling well. Urine culture pulmonary gram-negative. Patient continues on Rocephin and Levaquin. Chest x-ray negative for acute disease COPD noted Objective - Vital Signs Vital signs: Vital Signs Temp 101.7 F H 04/12/19 12:12 Pulse 94 04/12/19 08:52 Resp 20 04/12/19 08:52 BP 163/79 04/12/19 08:52 Pulse Ox 90 L 04/12/19 08:52 Intake & Output 04/11/19 04/12/19 04/12/19 18:59 06:59 18:59 Output Total 1460 Balance -1460 Output: Urine 1460 Other: Voiding Method Toilet # Voids 3 1 1 - Constitutional General appearance: Present: mild distress - EENT Eyes: Present: PERRLA Ears: bilateral: normal - Neck Neck: Present: normal ROM - Respiratory Respiratory: bilateral: CTA - Cardiovascular Rhythm: regular - Gastrointestinal General gastrointestinal: Present: soft Localized gastrointestinal: tender: diffuse - Integumentary Integumentary: Present: normal - Neurologic Neurologic: Present: CNII-XII intact - Musculoskeletal Musculoskeletal: Present: generalized weakness - Psychiatric Psychiatric: Present: A&O x's 3, appropriate affect, intact judgment & insight - Labs CBC & Chem 7: 04/12/19 09:32 04/12/19 09:32 Labs: Abnormal Lab Results - Last 24 Hours (Table) 04/12/19 04/12/19 Range/Units 09:32 09:32 WBC 2.8 L (3.8-10.6) k/uL RBC 3.32 L (3.80-5.40) m/uL Hgb 9.6 L (11.4-16.0) gm/dL Hct 29.9 L (34.0-46.0) % Plt Count 68 L (150-450) k/uL Lymphocytes # (Manual) 0.42 L (1.0-4.8) k/uL Chloride 110 H (98-107) mmol/L Calcium 7.9 L (8.4-10.2) mg/dL Microbiology - Last 24 Hours (Table) 04/10/19 10:53 Urine Culture - Preliminary Urine,Voided Gram Neg Bacilli 04/10/19 10:53 Blood Culture - Preliminary Blood No Growth after 24 hours - Imaging and Cardiology Chest x-ray: report reviewed CT scan - abdomen: report reviewed (Chest x-ray negative for acute process COPD noted) Assessment and Plan Plan: Assessment Acute urinary tract infection gram-negative awaiting final culture Hypokalemia History of leukopenia History of primary biliary cirrhosis Plan Continue Rocephin and Levaquin no improvement will consult of infectious disease
[2019-04-12] MEDS: CEFEPIME 2 GM in SODIUM CHLORIDE 0.9% 100 ML IVPB SCH (21:37)
[2019-04-12] MEDS: ZOLPIDEM 5 MG TAB PO PRN (22:03)
[2019-04-13] MEDS: MORPHINE SULFATE 2 MG/ML SYRINGE IVP PRN ×6 (00:09→23:32)
[2019-04-13] MEDS: IBUPROFEN 400 MG TAB PO PRN (00:28)
[2019-04-13] MEDS: CEFEPIME 2 GM in SODIUM CHLORIDE 0.9% 100 ML IVPB SCH ×3 (04:19→20:08)
[2019-04-13] MEDS: CALCIUM CARBONATE 500 MG CHEWABLE PO SCH (09:32)
[2019-04-13] MEDS: ASCORBIC ACID 500 MG TAB PO SCH (09:32)
[2019-04-13] MEDS: PANTOPRAZOLE 40 MG TABLET PO SCH (09:32)
[2019-04-13] MEDS: CYANOCOBALAMIN 500 MCG TAB PO SCH (09:32)
[2019-04-13] MEDS: OCALIVA PO SCH (09:33)
[2019-04-13] MEDS: NON-FORMULARY DRUG (Krill Oil [Krill Oil] 500 MG) PO SCH (09:33)
[2019-04-13] MEDS: POLYETHYLENE GLYCOL 3350 17 GM POWD.PACK PO SCH (09:34)
[2019-04-13] MEDS: NON-FORMULARY DRUG (Omega-3 Fatty Acids/Fish Oil [Fish Oil 1,000 Mg Softgel] 1 CAP) PO SCH (09:34)
[2019-04-13] MEDS: PARoxetine 20 MG TAB PO SCH (09:34)
[2019-04-13] MEDS: URSODIOL 300 MG CAP PO SCH (09:35)
[2019-04-13] MEDS: VIT A,C & E-LUTEIN-MINERALS 1 EACH TAB PO SCH (09:35)
--- NOTE | 2019-04-13 12:51 | P.PN ---
Subjective Patient continues with fevers at night. Antibiotics changed to cefepime. Consultation put in per Dr. Dasilva. Patient continues complaining of cough and chills awaiting consultation from gastroenterology regarding colitis. Culture revealed E. coli infection Objective - Vital Signs Vital signs: Vital Signs Temp 98.5 F 04/13/19 10:50 Pulse 74 04/13/19 10:50 Resp 18 04/13/19 10:50 BP 125/74 04/13/19 10:50 Pulse Ox 94 L 04/13/19 10:50 Intake & Output 04/12/19 04/13/19 04/13/19 18:59 06:59 18:59 Intake Total 600 Output Total 3235 1100 1000 Balance -3235 -1100 -400 Weight 45.359 kg Intake: Oral 600 Output: Urine 3235 1100 1000 Other: Voiding Method Toilet Toilet # Voids 1 - Constitutional General appearance: Present: mild distress - EENT Eyes: Present: PERRLA Ears: bilateral: normal - Neck Neck: Present: normal ROM - Respiratory Respiratory: bilateral: CTA - Cardiovascular Rhythm: regular - Gastrointestinal General gastrointestinal: Present: soft Localized gastrointestinal: tender: diffuse - Integumentary Integumentary: Present: normal - Neurologic Neurologic: Present: CNII-XII intact - Musculoskeletal Musculoskeletal: Present: generalized weakness - Psychiatric Psychiatric: Present: A&O x's 3, appropriate affect, intact judgment & insight - Labs CBC & Chem 7: 04/12/19 09:32 04/12/19 09:32 Labs: Microbiology - Last 24 Hours (Table) 04/10/19 10:53 Urine Culture - Final Urine,Voided Escherichia coli 04/10/19 10:53 Blood Culture - Preliminary Blood No Growth after 48 hours Assessment and Plan Plan: Assessment Urinary tract infection E. coli Hypokalemia history of leukopenia History of primary biliary cirrhosis Colitis Cough fever negative influenza Plan Echocardiogram done awaiting results for fluid management Consultation with the infectious disease Dr. Dasilva Consultation with gastroenterology regarding colitis
--- NOTE | 2019-04-13 14:18 | P.CONS ---
History of Present Illness - Reason for Consult Consult date: 04/13/19 Colitis Requesting physician: Jeff Brunson - Chief Complaint Fever - History of Present Illness 73-year-old female with a history of primary biliary cirrhosis followed by [facility] presents with UTI symptoms, fever T-max 101.7 urine culture positive E. coli UTI. CT abdomen oral contrast only bilateral nephrolithiasis cirrhosis splenomegaly small amount of ascites cannot exclude enteritis or colitis. Wall thickening along the ascending colon and cecum regions no evidence of obstruction. Patient denies symptoms of colitis such as abdominal pain diarrhea or constipation. No reports of hematemesis hematochezia or melena. No history of inflammatory bowel diseases or colitis. Last colonoscopy to her memory in 2017 1 polyp removed. Hemoglobin 11 9.6. Platelets 60,000. INR 1.0. Influenza not detected. Total bilirubin 1.7. AST 31. ALT 30. AP 127. blood cultures no growth after 48 hours. Review of Systems Constitutional: Denies fever, chills, sweats, weight gain, or loss. HEENT: Negative for migraines, blurred vision or loss, earaches, drainage, tinnitus, oral mucosal lesions, dysphagia, or odynophagia. CARDIAC: Negative for chest pain, arrhythmias, or palpitation. RESPIRATORY: Negative for shortness of breath, hemoptysis, cough, or sputum production. GI: See HPI for pertinent findings. : Negative for hematuria, urgency, frequency, polyuria, or dysuria. GYNc: Denies possibility of . Negative vaginal discharge. MUSCULOSKELETAL: Negative for muscle aches, swelling, arthritis, and arth ralgias. NEUROLOGIC: Negative for stroke or TIA. ENDOCRINE: Negative for thyroid problems. SKIN: Negative for rash or itching. PSYCHIATRIC: Negative history for depression and anxiety Past Medical History Additional Past Medical History / Comment(s): primary biliary cirrhosis History of Any Multi-Drug Resistant Organisms: None Reported Past Surgical History: Hysterectomy, Orthopedic Surgery Past Anesthesia/Blood Transfusion Reactions: No Reported Reaction Past Psychological History: No Psychological Hx Reported Smoking Status: Never smoker Past Alcohol Use History: None Reported Past Drug Use History: None Reported - Past Family History Mother History Unknown: Yes Family Medical History: Diabetes Mellitus, Hypertension Father History Unknown: Yes Additional Family Medical History / Comment(s): ALCOHOLISM Medications and Allergies Home Medications Medication Instructions Recorded Confirmed Type Ascorbic Acid [Vitamin C] 500 mg PO DAILY 03/25/18 04/10/19 History Calcium Carbonate [Calcium] 600 mg PO DAILY 03/25/18 04/10/19 History Cyanocobalamin [Vitamin B-12] 500 mcg PO DAILY 03/25/18 04/10/19 History Krill Oil 500 mg PO DAILY 03/25/18 04/10/19 History Obeticholic Acid [Ocaliva] 5 mg PO DAILY 03/25/18 04/10/19 History [place]-3 Fatty Acids/Fish Oil [Fish 1 cap PO DAILY 03/25/18 04/10/19 History Oil 1,000 mg Softgel] Ursodiol 900 mg PO DAILY 03/25/18 04/10/19 History Vit C/E/Zn/Coppr/Lutein/Zeaxan 1 cap PO DAILY 03/25/18 04/10/19 History [Preservision Areds 2 Softgel] Zolpidem [Ambien] 10 mg PO HS 03/25/18 04/10/19 History PARoxetine HCL [Paxil] 40 mg PO DAILY 04/10/19 04/10/19 History Allergies Allergy/AdvReac Type Severity Reaction Status Date / Time No Known Allergies Allergy Verified 04/10/19 16:17 Physical Exam Vitals: Vital Signs Temp Pulse Resp BP Pulse Ox 04/13/19 10:50 98.5 F 74 18 125/74 94 L 04/13/19 09:30 98.6 F 66 16 114/60 95 04/13/19 04:14 98.6 F 63 18 116/62 96 04/13/19 00:20 101.5 F H 70 18 135/71 98 04/12/19 21:27 99.5 F 69 16 121/62 97 04/12/19 16:00 18 95 04/12/19 15:00 98.3 F Intake and Output 04/12/19 04/13/19 04/13/19 22:59 06:59 14:59 Intake Total 600 Output Total 9561 781 7549 Balance -1075 -800 -400 Intake: Oral 600 Output: Urine 5632 327 4566 Other: Voiding Method Toilet Toilet Toilet # Voids 1 Weight 45.359 kg General appearance: The patient is alert, oriented, in no acute distress. HET: Head is normocephalic and atraumatic. Pupils are equal and reactive. Oropharynx is clear without lesions. Neck: Supple without lymphadenopathy. Trachea midline. Heart: S1 S2. Regular rate and rhythm. Lungs: No crackles or wheezes are heard. Abdomen: Soft, nontender, nondistended with bowel sounds. No peritoneal signs. No palpable organomegaly or masses. Extremities: Normal skin color and turgor. No cyanosis, rash, ulceration, clubbing, or edema. Radial and pedal pulses are 2/4 bilaterally. Neurological: No focal deficits. Strength and sensation are grossly intact. Results CBC & Chem 7: 04/12/19 09:32 04/12/19 09:32 Labs: Microbiology - Last 24 Hours (Table) 04/10/19 10:53 Urine Culture - Final Urine,Voided Escherichia coli 04/10/19 10:53 Blood Culture - Preliminary Blood No Growth after [address] scan - abdomen: report reviewed (Dr. Merritt) Assessment and Plan (1) Primary biliary cirrhosis Narrative/Plan: 73-year-old female with a history of primary biliary cirrhosis followed by [facility] presents with UTI fever with radiographic imaging suggestive colitis but not clinically exhibiting signs of colitis such as diarrhea abdominal pain hematemesis hematochezia or melena. Current Visit: Yes Status: Acute Code(s): K74.3 - PRIMARY BILIARY CIRRHOSIS SNOMED Code(s): 63862677 (2) Fever Current Visit: Yes Status: Acute Code(s): R50.9 - FEVER, UNSPECIFIED SNOMED Code(s): 836816322 (3) UTI (urinary tract infection) Current Visit: Yes Status: Acute Code(s): N39.0 - URINARY TRACT INFECTION, SITE NOT SPECIFIED SNOMED Code(s): 23278918 Plan: 1. Continue to observe continue with present medical therapy presently no symptoms of colitis will reevaluate tomorrow. Thank you for this kind referral and the opportunity to participate in the care of your patient. This consultation was discussed with Dr. Merritt. The impression and plan of care have been directed as dictated.
[2019-04-13] MEDS ORDERED: ZOLPIDEM 10 MG TAB PO PRN (15:45)
[2019-04-13 20:19] VITALS: RESP 18
[2019-04-14] MEDS: MORPHINE SULFATE 2 MG/ML SYRINGE IVP PRN ×2 (03:23→07:17)
[2019-04-14] MEDS: CEFEPIME 2 GM in SODIUM CHLORIDE 0.9% 100 ML IVPB SCH ×2 (05:28→13:54)
[2019-04-14] MEDS: PANTOPRAZOLE 40 MG TABLET PO SCH (07:18)
[2019-04-14] MEDS: CALCIUM CARBONATE 500 MG CHEWABLE PO SCH (07:50)
[2019-04-14] MEDS: ASCORBIC ACID 500 MG TAB PO SCH (07:50)
[2019-04-14] MEDS: CYANOCOBALAMIN 500 MCG TAB PO SCH (07:50)
[2019-04-14] MEDS: VIT A,C & E-LUTEIN-MINERALS 1 EACH TAB PO SCH (07:50)
[2019-04-14] MEDS: URSODIOL 300 MG CAP PO SCH (07:50)
[2019-04-14] MEDS: PARoxetine 20 MG TAB PO SCH (07:51)
[2019-04-14] MEDS: OCALIVA PO SCH ×2 (07:57→08:08)
[2019-04-14] MEDS: NON-FORMULARY DRUG (Omega-3 Fatty Acids/Fish Oil [Fish Oil 1,000 Mg Softgel] 1 CAP) PO SCH (07:57)
[2019-04-14] MEDS: POLYETHYLENE GLYCOL 3350 17 GM POWD.PACK PO SCH (08:08)
[2019-04-14] MEDS: NON-FORMULARY DRUG (Krill Oil [Krill Oil] 500 MG) PO SCH (08:20)
[2019-04-14] MEDS ORDERED: HYDROcodone/APAP 5-325MG 1 EACH TAB PO PRN (10:54)
--- NOTE | 2019-04-14 11:31 | P.CONS ---
History of Present Illness - Reason for Consult Consult date: 04/14/19 Antibiotic therapy - History of Present Illness This is a 73-year-old female patient with past medical history si gnificant for primary biliary cirrhosis on the care of [facility]. Patient states she presented to the hospital due to nausea without vomiting or diarrhea, no fever some lower abdominal pain and flank pain along with dysuria, urgency and frequency. Patient states she has had urinary tract infections in the past but none in the past year. She also has history of kidney stones. Patient was admitted to the hospital initially started on Rocephin received 1 dose of Levaquin and continued to be febrile up to 101.6 and infectious disease consult was requested. Antibiotics have been changed to cefepime and patient has been afebrile for the past 24 hours. In general she states her abdominal pain has improved as well as nausea. She is able to eat her diet. She currently has a white count of 2.8, hemoglobin 9.6, platelet count 68, creatinine 0.63. Influenza testing negative. Blood cultures showing no growth after 72 hours. Urine culture is positive for E. coli pansensitive except for ampicillin and Unasyn. Patient has also been seen by GI with no signs of colitis. Patient is currently taking MiraLAX for constipation. Review of Systems Constitutional: Reports anorexia, Reports chills, Reports fever, Reports poor appetite Ears, nose, mouth and throat: Denies dental pain, Denies dysphagia, Denies nasal congestion, Denies nasal discharge, Denies vertigo Cardiovascular: Denies dyspnea on exertion, Denies edema, Denies syncope Respiratory: Denies cough, Denies cough with sputum, Denies dyspnea, Denies excessive sputum, Denies hemoptysis, Denies wheezing Gastrointestinal: Reports abdominal pain, Reports constipation, Reports loss of appetite, Reports nausea, Reports vomiting, Denies diarrhea Genitourinary: Reports flank pain, Reports urgency, Reports urinary frequency Musculoskeletal: Denies frequent falls, Denies gait dysfunction, Denies myalgias Integumentary: Denies pruritus, Denies rash, Denies wounds Neurological: Denies aphasia, Denies change in mentation, Denies change in speech, Denies gait dysfunction, Denies headaches, Denies seizures Past Medical History Additional Past Medical History / Comment(s): primary biliary cirrhosis History of Any Multi-Drug Resistant Organisms: None Reported Past Surgical History: Hysterectomy, Orthopedic Surgery Past Anesthesia/Blood Transfusion Reactions: No Reported Reaction Past Psychological History: No Psychological Hx Reported Smoking Status: Never smoker Past Alcohol Use History: None Reported Additional Past Alcohol Use History / Comment(s): Patient is a lifelong nonsmoker, no illicit drug use, no alcohol use. Patient was at home with her . 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 There are no pets in the home. She travels to [place] in the winter with her . Past Drug Use History: None Reported - Past Family History Mother History Unknown: Yes Family Medical History: Diabetes Mellitus, Hypertension Father History Unknown: Yes Additional Family Medical History / Comment(s): ALCOHOLISM Medications and Allergies Home Medications Medication Instructions Recorded Confirmed Type Ascorbic Acid [Vitamin C] 500 mg PO DAILY 03/25/18 04/10/19 History Calcium Carbonate [Calcium] 600 mg PO DAILY 03/25/18 04/10/19 History Cyanocobalamin [Vitamin B-12] 500 mcg PO DAILY 03/25/18 04/10/19 History Krill Oil 500 mg PO DAILY 03/25/18 04/10/19 History Obeticholic Acid [Ocaliva] 5 mg PO DAILY 03/25/18 04/10/19 History [place]-3 Fatty Acids/Fish Oil [Fish 1 cap PO DAILY 03/25/18 04/10/19 History Oil 1,000 mg Softgel] Ursodiol 900 mg PO DAILY 03/25/18 04/10/19 History Vit C/E/Zn/Coppr/Lutein/Zeaxan 1 cap PO DAILY 03/25/18 04/10/19 History [Preservision Areds 2 Softgel] Zolpidem [Ambien] 10 mg PO HS 03/25/18 04/10/19 History PARoxetine HCL [Paxil] 40 mg PO DAILY 04/10/19 04/10/19 History Allergies Allergy/AdvReac Type Severity Reaction Status Date / Time No Known Allergies Allergy Verified 04/10/19 16:17 Physical Exam Vitals: Vital Signs Temp Pulse Resp BP Pulse Ox 04/14/19 08:00 18 04/14/19 07:00 64 18 140/69 98 04/13/19 23:00 99.6 F 70 18 127/67 98 04/13/19 19:00 99.3 F 68 18 127/61 95 05/30/19 17:30 98.5 F 63 16 142/88 94 L 04/13/19 14:00 18 04/13/19 10:50 98.5 F 74 18 125/74 94 L 04/13/19 09:30 98.6 F 66 16 114/60 95 Intake and Output 04/13/19 04/14/19 04/14/19 22:59 06:59 14:59 Intake Total 820 580 Output Total 800 900 Balance 20 -320 Intake: Oral 820 580 Output: Urine 800 900 Other: Voiding Method Toilet Toilet Gen: This is a 73-year-old thin female. She is sitting up in bed and appears to be comfortable and in no acute distress. HEENT: Head is atraumatic, normocephalic. Pupils equal, round. Sclerae is anicteric. Oral mucous membranes are moist. Oropharynx without erythema or edema. NECK: Supple. No JVD. No lymphadenopathy. No thyromegaly. LUNGS: Clear to auscultation. No wheezes or rhonchi. No intercostal retractions. HEART: Regular rate and rhythm. No murmur. ABDOMEN: Soft. Bowel sounds are present. No masses. No tenderness. Bilateral CVA tenderness increased on the right. No suprapubic tenderness. EXTREMITIES: No pedal edema. No calf tenderness. Dorsalis pedis +2 felix aterally. NEUROLOGICAL: Patient is awake, alert and oriented x3. Cranial nerves 2 through 12 are grossly intact. Results Results: Laboratory Results WBC 2.8 k/uL (3.8-10.6) L 04/12/19 09:32 RBC 3.32 m/uL (3.80-5.40) L 04/12/19 09:32 Hgb 9.6 gm/dL (11.4-16.0) L 04/12/19 09:32 Hct 29.9 % (34.0-46.0) L 04/12/19 09:32 MCV 90.0 fL (80.0-100.0) 04/12/19 09:32 MCH 28.8 pg (25.0-35.0) 04/12/19 09:32 MCHC 32.1 g/dL (31.0-37.0) 04/12/19 09:32 RDW 14.9 % (11.5-15.5) 04/12/19 09:32 Plt Count 68 k/uL (150-450) L 04/12/19 09:32 Neutrophils % 76 % 04/10/19 10:53 Neutrophils % (Manual) 65 % 04/12/19 09:32 Lymphocytes % 9 % 04/10/19 10:53 Lymphocytes % (Manual) 15 % 04/12/19 09:32 Monocytes % 10 % 04/10/19 10:53 Monocytes % (Manual) 16 % 04/12/19 09:32 Eosinophils % 3 % 04/10/19 10:53 Eosinophils % (Manual) 4 % 04/12/19 09:32 Basophils % 0 % 04/10/19 10:53 Neutrophils # 3.1 k/uL (1.3-7.7) 04/10/19 10:53 Neutrophils # (Manual) 1.82 k/uL (1.3-7.7) 04/12/19 09:32 Lymphocytes # 0.4 k/uL (1.0-4.8) L 04/10/19 10:53 Lymphocytes # (Manual) 0.42 k/uL (1.0-4.8) L 04/12/19 09:32 Monocytes # 0.4 k/uL (0-1.0) 04/10/19 10:53 Monocytes # (Manual) 0.45 k/uL (0-1.0) 04/12/19 09:32 Eosinophils # 0.1 k/uL (0-0.7) 04/10/19 10:53 Eosinophils # (Manual) 0.11 k/uL (0-0.7) 04/12/19 09:32 Basophils # 0.0 k/uL (0-0.2) 04/10/19 10:53 Nucleated RBCs 0 /100 WBC (0-0) 04/12/19 09:32 Manual Slide Review Performed 04/12/19 09:32 Hypochromasia Slight 04/12/19 09:32 PT 10.3 sec (9.0-12.0) 04/10/19 10:53 INR 1.0 (<1.2) 04/10/19 10:53 APTT 23.8 sec (22.0-30.0) 04/10/19 10:53 Sodium 142 mmol/L (137-145) 04/12/19 09:32 Potassium 4.2 mmol/L (3.5-5.1) 04/12/19 09:32 Chloride 110 mmol/L (98-107) H 04/12/19 09:32 Carbon Dioxide 26 mmol/L (22-30) 04/12/19 09:32 Anion Gap 6 mmol/L 04/12/19 09:32 BUN 9 mg/dL (7-17) 04/12/19 09:32 Creatinine 0.63 mg/dL (0.52-1.04) 04/12/19 09:32 Est GFR (CKD-EPI)AfAm >90 (>60 ml/min/1.73 sqM) 04/12/19 09:32 Est GFR (CKD-EPI)NonAf >90 (>60 ml/min/1.73 sqM) 04/12/19 09:32 Glucose 93 mg/dL (74-99) 04/12/19 09:32 Plasma Lactic Acid Kb 0.8 mmol/L (0.7-2.0) 04/12/19 09:32 Calcium 7.9 mg/dL (8.4-10.2) L 04/12/19 09:32 Total Bilirubin 1.7 mg/dL (0.2-1.3) H 04/10/19 10:53 AST 31 U/L (14-36) 04/10/19 10:53 ALT 30 U/L (9-52) 04/10/19 10:53 Alkaline Phosphatase 127 U/L (38-126) H 04/10/19 10:53 NT-Pro-B Natriuret Pep 1030 pg/mL 04/12/19 09:36 Total Protein 6.4 g/dL (6.3-8.2) 04/10/19 10:53 Albumin 3.5 g/dL (3.5-5.0) 04/10/19 10:53 Urine Color Yellow 04/10/19 10:53 Urine Appearance Cloudy (Clear) H 04/10/19 10:53 Urine pH 6.5 (5.0-8.0) 04/10/19 10:53 Ur Specific [place] 1.016 (1.001-1.035) 04/10/19 10:53 Urine Protein 1+ (Negative) H 04/10/19 10:53 Urine Glucose (UA) Negative (Negative) 04/10/19 10:53 Urine Ketones 2+ (Negative) H 04/10/19 10:53 Urine Blood Moderate (Negative) H 04/10/19 10:53 Urine Nitrite Positive (Negative) H 04/10/19 10:53 Urine Bilirubin Negative (Negative) 04/10/19 10:53 Urine Urobilinogen <2.0 mg/dL (<2.0) 04/10/19 10:53 Ur Leukocyte Esterase Large (Negative) H 04/10/19 10:53 Urine RBC >182 /hpf (0-5) H 04/10/19 10:53 Urine WBC >182 /hpf (0-5) H 04/10/19 10:53 Urine WBC Clumps Many /hpf (None) H 04/10/19 10:53 Ur Squamous Epith Cells 2 /hpf (0-4) 04/10/19 10:53 Urine Bacteria Moderate /hpf (None) H 04/10/19 10:53 Urine Mucus Rare /hpf (None) H 04/10/19 10:53 Influenza Type A RNA Not Detected (Not Detectd) 04/12/19 22:00 Influenza Type B (PCR) Not Detected (Not Detectd) 04/12/19 22:00 CBC & Chem 7: 04/12/19 09:32 04/12/19 09:32 Labs: Microbiology - Last 24 Hours (Table) 04/10/19 10:53 Blood Culture - Preliminary Blood No Growth after 72 hours Assessment and Plan Plan: This is a 73-year-old female presented hospital with E. coli urinary tract infection. She was transitioned to cefepime and has had improvement of her symptoms. Patient is scheduled for discharge home. Home antibiotics will be addressed. Continue supportive care. Further recommendations as patient presses. The above dictated assessment and findings were discussed with Dr. Dasilva. The impression and plan of care have been directed as dictated. Kasey Win nurse practitioner acting as scribe for Dr. Dasilva.
--- NOTE | 2019-04-14 12:43 | P.DS ---
Providers Date of admission: 04/11/19 14:33 Attending physician: Jeff Brunson Consults: 04/12/19 12:55 Consult Physician Urgent Consulting Provider: Dru Robertson Consult Reason/Comments: colitis abd pain Do you want consulting provider notified?: Yes 04/12/19 19:20 Consult Physician Routine Consulting Provider: Victor Manuel Dasilva Consult Reason/Comments: antibiotic therapy Do you want consulting provider notified?: Yes Primary care physician: Jeff Brunson Hospital Course: Patient is admitted and was treated for urinary tract infection patient is a, which is pansensitive and the antibiotics are being addressed by infectious disease was the do this patient will be discharged today. Patient does have cirrhosis does have minimal ascites and patient apparently had pulmonary edema during this hospitalization probably secondary to IV fluids that resolved at this time. Patient's echo cardiac murmur was done and results are still pending. Clinically does not appear to be in CHF. Patient does have cirrhosis and mild ascites but does not require any therapeutic paracentesis. Patient will be discharged on small dose of Lasix. Patient may need a higher dose for her ascites since the patient is lydia to Lasix and the because of her low BMI albuterol overdose with repeat basic metabolic profile in 3 days and results to be faxed to PCP Dr. Brunson's office. Patient is clinically doing well. PHYSICAL EXAMINATION: GENERAL: The patient is alert and oriented x3, not in any acute distress. Well developed, well nourished. HEENT: Pupils are round and equally reacting to light. EOMI. No scleral icterus. No conjunctival pallor. Normocephalic, atraumatic. No pharyngeal erythema. No thyromegaly. CARDIOVASCULAR: S1 and S2 present. No murmurs, rubs, or gallops. PULMONARY: Chest is clear to auscultation, no wheezing or crackles. ABDOMEN: Soft, nontender, does have ascites normoactive bowel sounds. No palpable organomegaly. MUSCULOSKELETAL: No joint swelling or deformity. EXTREMITIES: No cyanosis, clubbing, or pedal edema. NEUROLOGICAL: Gross neurological examination did not reveal any focal deficits. SKIN: No rashes. Please refer to Dr. Brunson's dictation for further details of hospitalization course and other chronic medical problems that were addressed here. Patient Condition at Discharge: Good Plan - Discharge Summary Discharge Rx Participant: Yes New Discharge Prescriptions: New Furosemide [Lasix] 20 mg PO DAILY #30 tab Continue Vit C/E/Zn/Coppr/Lutein/Zeaxan [Preservision Areds 2 Softgel] 1 cap PO DAILY [place]-3 Fatty Acids/Fish Oil [Fish Oil 1,000 mg Softgel] 1 cap PO DAILY Cyanocobalamin [Vitamin B-12] 500 mcg PO DAILY Calcium Carbonate [Calcium] 600 mg PO DAILY Ascorbic Acid [Vitamin C] 500 mg PO DAILY Zolpidem [Ambien] 10 mg PO HS Ursodiol 900 mg PO DAILY Obeticholic Acid [Ocaliva] 5 mg PO DAILY Krill Oil 500 mg PO DAILY PARoxetine HCL [Paxil] 40 mg PO DAILY Discharge Medication List Ascorbic Acid [Vitamin C] 500 mg PO DAILY 03/25/18 [History] Calcium Carbonate [Calcium] 600 mg PO DAILY 03/25/18 [History] Cyanocobalamin [Vitamin B-12] 500 mcg PO DAILY 03/25/18 [History] Krill Oil 500 mg PO DAILY 03/25/18 [History] Obeticholic Acid [Ocaliva] 5 mg PO DAILY 03/25/18 [History] [place]-3 Fatty Acids/Fish Oil [Fish Oil 1,000 mg Softgel] 1 cap PO DAILY 03/25/18 [History] Ursodiol 900 mg PO DAILY 03/25/18 [History] Vit C/E/Zn/Coppr/Lutein/Zeaxan [Preservision Areds 2 Softgel] 1 cap PO DAILY 03/25/18 [History] Zolpidem [Ambien] 10 mg PO HS 03/25/18 [History] PARoxetine HCL [Paxil] 40 mg PO DAILY 04/10/19 [History] Furosemide [Lasix] 20 mg PO DAILY #30 tab 04/14/19 [Rx] Follow up Appointment(s)/Referral(s): Jeff Brunson MD [Primary Care Provider] - 3 Days Ambulatory/Diagnostic Orders: Basic Metabolic Panel [LAB.AMB] Time Frame: 3 Days, Location: None Selected Discharge Disposition: HOME SELF-CARE
[2019-04-14 13:04] VITALS: BP 108/69; PULSE 66; TEMP 98.4
--- NOTE | 2019-04-14 13:49 | ECHOF ---
Referral Reason:CHF and cardiomegaly MEASUREMENTS -------- HEIGHT: 152.4 cm WEIGHT: 45.4 kg BP: RVIDd: 2.7 cm (< 3.3) IVSd: 0.9 cm (0.6 - 1.1) LVIDd: 4.1 cm (3.9 - 5.3) LVPWd: 0.9 cm (0.6 - 1.1) IVSs: 1.4 cm LVIDs: 2.1 cm LVPWs: 1.7 cm Ao Diam: 2.0 cm (2.0 - 3.7) AV Cusp: 1.8 cm (1.5 - 2.6) LA Diam: 3.2 cm (2.7 - 3.8) EPSS: 0.5 cm MV E Matthew: 1.09 m/s MV DecT: 202 ms MV A Matthew: 1.07 m/s MV E/A Ratio: 1.02 RAP: 5.00 mmHg RVSP: 24.27 mmHg MV EF SLOPE: 71.19 mm/s (70 - 150) MV EXCURSION: 0.83 cm (> 18.000) FINDINGS -------- Sinus rhythm. This was a technically good study. The left ventricular size is normal. Left ventricular wall thickness is normal. Overall left vent ricular systolic function is normal with, an EF between 55 - 60 %. The right ventricle is normal in size. The left atrial size is normal. The right atrial size is normal. Interatrial and interventricular septum intact. The aortic valve is trileaflet and appears structurally normal. The mitral valve is normal. Mild mitral regurgitation is present. The tricuspid valve appears structurally normal. Mild tricuspid regurgitation present. There is n o evidence of pulmonary hypertension. The right ventricular systolic pressure, as measured by Doppl er, is 24.27mmHg. There is no pulmonic regurgitation present. The aortic root size is normal. The inferior vena cava was not well visualized. There is no pericardial effusion. CONCLUSIONS -------- 1. Sinus rhythm. 2. This was a technically good study. 3. The left ventricular size is normal. 4. Left ventricular wall thickness is normal. 5. Overall left ventricular systolic function is normal with, an EF between 55 - 60 %. 6. The right ventricle is normal in size. 7. The left atrial size is normal. 8. The right atrial size is normal. 9. Interatrial and interventricular septum intact. 10. The aortic valve is trileaflet and appears structurally normal. 11. The mitral valve is normal. 12. Mild mitral regurgitation is present. 13. The tricuspid valve appears structurally normal. 14. Mild tricuspid regurgitation present. 15. There is no evidence of pulmonary hypertension. 16. The right ventricular systolic pressure, as measured by Doppler, is 24.27mmHg. 17. There is no pulmonic regurgitation present. 18. The aortic root size is normal. 19. The inferior vena cava was not well visualized. 20. There is no pericardial effusion. DISH MACHINE OPERATOR: Parul Quintero RDCS
--- NOTE | 2019-04-14 23:08 | P.CON ---
Consult Note - . Consult date: 04/14/19 Assessment/Plan:: This is a 73-year-old female patient with past medical history significant for primary biliary cirrhosis on the care of [facility]. Patient states she presented to the hospital due to nausea without vomiting or diarrhea, no fever some lower abdominal pain and flank pain along with dysuria, urgency and frequency. Patient states she has had urinary tract infections in the past but none in the past year. She also has history of kidney stones. Patient was admitted to the hospital initially started on Rocephin received 1 dose of Levaquin and continued to be febrile up to 101.6 and infectious disease consult was requested. Antibiotics have been changed to cefepime and patient has been afebrile for the past 24 hours. In general she states her abdominal pain has improved as well as nausea. She is able to eat her diet. She currently has a white count of 2.8, hemoglobin 9.6, platelet count 68, creatinine 0.63. Influenza testing negative. Blood cultures showing no growth after 72 hours. Urine culture is positive for E. coli pansensitive except for ampicillin and Unasyn. Patient has also been seen by GI with no signs of colitis. Patient is currently taking MiraLAX for constipation. Please see the consult note is dictated by nurse practitioner Mrs. Kasey Win. Pleasant 73-year-old woman who has primary biliary cirrhosis became suddenly quite ill with a fever and chills. Evidence of Sepsis from Urinary System and Evidence of Positive Blood Culture with E. coli. Patient is now markedly improved. No other resistant pathogens were found and the cefepime may be transitioned to oral antibiotic therapy with cefuroxime 500 mg every 12 hours 2014 days for her complex gram-negative infection consistent with bacteremia. She is somewhat immunocompromised from her primary biliary cirrhosis. Her pain control is adequate with oral medications. For her constipation she receiving MiraLAX with an appropriate response. She will be discharged home today in antibiotic is sent to her pharmacy. I agree with evaluation, assessment and plan as dictated by nurse practitioner Mrs. Kasey Win.
== END 2019-04-14 16:55 | disposition home or self-care (01) | DRG 690 ==
LOC: EC 09:36 → 6PED 12:28 → OBSVTOIN 04-11 14:33
PROVIDERS: ADMIT Family Medicine; ATTEND Family Medicine
DX: N39.0 Urinary tract infection, site not specified (principal); E87.1 Hypo-osmolality and hyponatremia; R18.8 Other ascites; K74.3 Primary biliary cirrhosis; B96.20 Unspecified Escherichia coli [E. coli] as the cause of diseases classified elsewhere; E87.6 Hypokalemia; N20.0 Calculus of kidney; K59.00 Constipation, unspecified; D72.819 Decreased white blood cell count, unspecified; K52.9 Noninfective gastroenteritis and colitis, unspecified; Z87.440 Personal history of urinary (tract) infections; Z87.442 Personal history of urinary calculi; Z79.899 Other long term (current) drug therapy; Z90.710 Acquired absence of both cervix and uterus; Z98.890 Other specified postprocedural states; Z83.3 Family history of diabetes mellitus; Z82.49 Family history of ischemic heart disease and other diseases of the circulatory system; Z81.8 Family history of other mental and behavioral disorders
CPT/HCPCS: 36415; 71045; 74176; 80048; 80053; 81001; 83605; 83880; 85025; 85610; 85730; 87040; 87077; 87086; 87186; 87502; 93005; 93306; 96365; 99284

== ENCOUNTER → 2019-04-19 | Outpatient (CLI) | payer MEDICARE ==
[2019-04-19 18:39] LABS: African American GFR (CKD) 74.6 (60.0-200.0); Anion Gap 8.8 mmol/L (4.00-12.00); BUN/Creat Ratio 15.56 Ratio (12.00-20.00); Calcium 9.2 mg/dL (8.7-10.3); Carbon Dioxide 28.2 mmol/L (21.6-31.8); Potassium 4.9 mmol/L (3.5-5.5)
== END | disposition home or self-care (01) ==
LOC: LABWHC1 12:48
PROVIDERS: ATTEND Internal Medicine
DX: N39.0 Urinary tract infection, site not specified (principal); R50.9 Fever, unspecified; E87.1 Hypo-osmolality and hyponatremia
CPT/HCPCS: 36415; 80048

== ENCOUNTER → 2019-05-31 | Outpatient (CLI) | payer MEDICARE ==
[2019-05-31 13:25] LABS: Anisocytosis Slight; Basophils % (A) 0 %; Eosinophils # (A) 0.1 k/uL (0-0.7); Eosinophils % (A) 4 %; HCT 36.3 % (34.0-46.0); Lymphocytes # (A) 0.7 k/uL (1.0-4.8); Lymphocytes % (A) 31 %; MCH 29.8 pg (25.0-35.0); MCHC 33.2 g/dL (31.0-37.0); MCV 89.7 fL (80.0-100.0); Mean Platelet Volume 8.7; Monocytes # (A) 0.2 k/uL (0-1.0); Monocytes % (A) 10 %; Neutrophils # (A) 1.2 k/uL (1.3-7.7); Neutrophils % (A) 53 %; RBC 4.05 m/uL (3.80-5.40); RDW 16.3 % (11.5-15.5); WBC 2.2 k/uL (3.8-10.6)
[2019-05-31 14:47] LABS: Platelet Count 85 k/uL (150-450)
[2019-05-31 14:48] LABS: Poikilocytosis (M) Present
[2019-05-31 18:12] LABS: Iron Saturation 23.15 (12.00-45.00)
== END | disposition home or self-care (01) ==
LOC: LABWHC1 12:31
PROVIDERS: ATTEND Internal Medicine
DX: D50.9 Iron deficiency anemia, unspecified (principal)
CPT/HCPCS: 36415; 82728; 83540; 83550; 85025

== ENCOUNTER → 2019-06-09 | Outpatient (CLI) | payer MEDICARE ==
--- NOTE | 2019-06-13 16:24 | MM ---
Reason for exam: screening (asymptomatic). Last mammogram was performed 1 year and 1 month ago. History: Patient is postmenopausal. Family history of breast cancer in paternal aunt and breast cancer in cousin. Took estrogen for 16 years. MG 3D Screening Mammo W/Cad Bilateral CC and MLO view(s) were taken. Prior study comparison: May 09, 2018, bilateral MG 3d diag mammo w/cad [facility]. April 30, 2017, bilateral MG 3d diag mammo w/cad [facility]. The breast tissue is extremely dense which could obscure a lesion on mammography. Lateral and posterior nodular asymmetry on the right breast is new. ASSESSMENT: Incomplete: need additional imaging evaluation, BI-RAD 0 RECOMMENDATION: Ultrasound of the right breast.
== END | disposition home or self-care (01) ==
LOC: RADMAMWWP 15:22
PROVIDERS: ATTEND Family Medicine
DX: Z12.31 Encounter for screening mammogram for malignant neoplasm of breast (principal)
CPT/HCPCS: 77063; 77067

== ENCOUNTER → 2019-06-21 | Outpatient (CLI) | payer MEDICARE ==
--- NOTE | 2019-06-21 09:34 | USB ---
Reason for exam: additional evaluation requested from abnormal screening. History: Patient is postmenopausal. Family history of breast cancer in paternal aunt and breast cancer in cousin. Took estrogen for 16 years. Physical Findings: Nurse Summary: prominent nodularity, all soft, movable (nurse ts). US Breast Workup Limited RT Right limited breast ultrasound including focal area of concern, retroareolar and axilla demonstrates no cystic or solid lesion seen. No sonographic correlate to the mammographic asymmetry. These results were verbally communicated with the patient and result sheet given to the patient on 06/21/19. ASSESSMENT: Incomplete: need additional imaging evaluation, BI-RAD 0 RECOMMENDATION: Special view mammogram of the right breast.
--- NOTE | 2019-06-21 09:35 | MM ---
Reason for exam: additional evaluation requested from abnormal screening. Last mammogram was performed less than 1 month ago. History: Patient is postmenopausal. Family history of breast cancer in paternal aunt and breast cancer in cousin. Took estrogen for 16 years. MG 3D Work Up W/Cad RT Spot compression CC, spot compression MLO, and ML view(s) were taken of the right breast. Prior study comparison: June 09, 2019, bilateral MG 3d screening mammo w/cad. May 09, 2018, bilateral MG 3d diag mammo w/cad [facility]. The previously seen abnormality resolves on additional views and appears as fibroglandular tissue compatible with summation. These results were verbally communicated with the patient and result sheet given to the patient on 06/21/19. ASSESSMENT: Benign, BI-RAD 2 RECOMMENDATION: Return to routine screening mammogram schedule for both breasts.
== END | disposition home or self-care (01) ==
LOC: RADUSWWP 07:40
PROVIDERS: ATTEND Family Medicine
DX: R92.8 Other abnormal and inconclusive findings on diagnostic imaging of breast (principal)
CPT/HCPCS: 77065; 76642; G0279; 77061

== ENCOUNTER → 2019-07-31 | Outpatient (CLI) | payer MEDICARE ==
--- NOTE | 2019-07-31 12:51 | XR ---
Bilateral hips HISTORY: Pain 2 views of each hip are submitted. No comparisons Bone mineralization, joint spaces and alignment are maintained. Question some mild remodeling of the right femoral head. IMPRESSION: There may be some mild osteoarthritic change right hip.
== END | disposition home or self-care (01) ==
LOC: RADXRMAIN 10:31
PROVIDERS: ATTEND Family Medicine
DX: M25.551 Pain in right hip (principal); M25.552 Pain in left hip
CPT/HCPCS: 73521

== ENCOUNTER → 2019-08-17 | Outpatient (CLI) | payer MEDICARE ==
--- NOTE | 2019-08-17 16:10 | XR ---
EXAMINATION TYPE: XR hand complete RT DATE OF EXAM: 08/17/2019 COMPARISON: NONE HISTORY: Pain TECHNIQUE: Three views are submitted. FINDINGS: Chronic deformity scaphoid suggest chronic osteonecrosis. Lunate bone not well seen maybe have been s urgically removed or may be secondary to congenital or chronic osteochondral necrosis. Remote trauma involving the ulnar styloid noted. Arthropathy of the first MCP joint. Arthropathy of the DIP joints with no erosive changes. Narrowing of the radiocarpal joint. IMPRESSION: 1. Arthropathy with marked diminished attenuation in size of the scaphoid bone and the central nonvis ualization of the lunate bone. Correlate for history of osteonecrosis. Congenital deformity or postsu rgical change also could be considered.
== END | disposition home or self-care (01) ==
LOC: RADXRMAIN 15:15
PROVIDERS: ATTEND Physician Assistant
DX: M19.041 Primary osteoarthritis, right hand (principal)

== ENCOUNTER → 2020-04-04 | Outpatient (CLI) | payer MEDICARE | END | disposition home or self-care (01) | LOC: RADUSWWP 07:19 | PROVIDERS: ATTEND Internal Medicine Gastroenterology | DX: Z53.9 Procedure and treatment not carried out, unspecified reason (principal) ==

== ENCOUNTER → 2020-05-30 | Outpatient (CLI) | payer MEDICARE ==
[2020-05-30 23:36] LABS: INR 0.93 (0.90-1.11)
[2020-05-31 01:45] LABS: Ferritin 28.6 ng/mL (10.0-291.0)
[2020-05-31 02:14] LABS: % Iron Saturation 15.44 (12.00-45.00); African American GFR (CKD) 85.4 (60.0-200.0); Albumin 4.3 g/dL (3.80-4.90); Albumin/Globulin Ratio 1.54 (1.60-3.17); Anion Gap 8.3 mmol/L (4.00-12.00); BUN/Creat Ratio 26.25 Ratio (12.00-20.00); Bilirubin, Conjugated 0.2 mg/dL (0.20-0.40); Bilirubin,Unconjugated 0.4 mg/dL; Calcium 9.1 mg/dL (8.7-10.3); Carbon Dioxide 27.7 mmol/L (21.6-31.8); Chol/HDL Ratio 2.45; Globulin 2.8 g/dL (1.6-3.3); LDL Cholesterol,Calculated 77.8 mg/dL (0.0-131.0); Non-African American GFR(CKD) 73.7 (60.0-200.0); Potassium 4.7 mmol/L (3.5-5.5); Total Bilirubin 0.6 mg/dL (0.2-1.2); Total Protein 7.1 g/dL (6.2-8.2); VLDL Calculation 34.2 mg/dL (5.00-40.00)
== END | disposition home or self-care (01) ==
LOC: LABWHC1 15:11
PROVIDERS: ATTEND Internal Medicine Gastroenterology
DX: K74.3 Primary biliary cirrhosis (principal)
CPT/HCPCS: 36415; 80048; 80061; 80076; 82105; 82728; 83540; 83550; 85025; 85610

== ENCOUNTER → 2020-06-19 | Outpatient (CLI) | payer MEDICARE ==
--- NOTE | 2020-06-20 07:19 | US ---
EXAMINATION TYPE: US kidneys/renal and bladder DATE OF EXAM: 06/19/2020 COMPARISON: CT 2019 and 2014. MRI 2016. CLINICAL HISTORY: N39.0 UTI. Recurrent UTI's EXAM MEASUREMENTS: Right Kidney: 9.4 x 4.5 x 4.6 cm Left Kidney: 9.9 x 4.7 x 4.1 cm Right Kidney: Lower pole anterior cortical echogenic focus = 0.6 cm. Lower pole echogenic focus in r enal sinus with doppler ring down artifact - 0.5 cm. Mild pyelocaliectasis. Left Kidney: Upper pole cystic appearing lesion = 1.5 x 1.6 x 1.2 cm. Limited visualization due to o verlying bowel gas. Bladder: Distended, anechoic Bilateral Jets seen Incidental finding- Enlarged spleen The urinary bladder is satisfactorily distended. Bilateral ureteral jets are seen. Enlarged spleen w ith scanning left kidney correlates with several prior CT and MRI studies. There is a 1.5 cm thin-wal led cyst upper pole of the left kidney on ultrasound less well seen on prior CT and MRI studies. IMPRESSION: Redemonstration of nonobstructing right renal calculi. Suspect mild right-sided hydroneph rosis currently. Distal ureter jet is noted suggesting complete ureter obstruction is not present.
== END | disposition home or self-care (01) ==
LOC: RADUSWWP 16:07
PROVIDERS: ATTEND Family Medicine
DX: N20.0 Calculus of kidney (principal)
CPT/HCPCS: 76770

== ENCOUNTER → 2020-07-04 | Outpatient (CLI) | payer MEDICARE ==
[2020-07-04 12:02] LABS: African American GFR (CKD) >90 (>60 ml/min/1.73 sqM); Anion Gap 7 mmol/L; Blood Urea Nitrogen 13 mg/dL (7-17); Calcium 9.2 mg/dL (8.4-10.2); Carbon Dioxide 29 mmol/L (22-30); Chloride 104 mmol/L (98-107); Glucose 148 mg/dL (74-99); Non-African American GFR(CKD) 90 (>60 ml/min/1.73 sqM); Potassium 4.8 mmol/L (3.5-5.1); Sodium 140 mmol/L (137-145)
[2020-07-04 12:25] LABS: Anisocytosis Slight; Basophils % (A) 1 %; Eosinophils # (A) 0.1 k/uL (0-0.7); Eosinophils % (A) 3 %; HCT 35.8 % (34.0-46.0); HGB 11.3 gm/dL (11.4-16.0); Hypochromasia Slight; Lymphocytes # (A) 0.6 k/uL (1.0-4.8); Lymphocytes % (A) 33 %; MCH 28.2 pg (25.0-35.0); MCHC 31.6 g/dL (31.0-37.0); MCV 89.4 fL (80.0-100.0); Mean Platelet Volume 9.1; Monocytes # (A) 0.2 k/uL (0-1.0); Monocytes % (A) 9 %; Neutrophils % (A) 51 %; RDW 17.1 % (11.5-15.5); WBC 1.9 k/uL (3.8-10.6)
[2020-07-04 13:52] LABS: Platelet Count 69 k/uL (150-450)
== END | disposition home or self-care (01) ==
LOC: LABPAT 10:03
PROVIDERS: ATTEND Urology
DX: Z01.818 Encounter for other preprocedural examination (principal); N20.0 Calculus of kidney; N13.30 Unspecified hydronephrosis; R31.29 Other microscopic hematuria; R53.83 Other fatigue
CPT/HCPCS: 80048; 85025; 87086; 93005

== ENCOUNTER → 2020-07-04 | Outpatient (CLI) | payer MEDICARE | END | disposition home or self-care (01) | LOC: RADXRMAIN 09:22 | PROVIDERS: ATTEND Internal Medicine | DX: Z53.9 Procedure and treatment not carried out, unspecified reason (principal) ==

== ENCOUNTER 2020-07-18 06:49 | Day surgery (SDC) | payer MEDICARE ==
[2020-07-08 15:31] VITALS: BMI 19.5
--- NOTE | 2020-07-13 17:17 | P.GSHP ---
History of Present Illness H&P Date: 07/07/20 Chief Complaint: Right flank pain The patient is a 74-year-old white female who reports right lower back pain. Renal ultrasound shows evidence of mild right pyelocaliectasis, as well as 2 right renal calculi measuring 5-6 mm in size. A computed tomography scan in March 2019 showed right renal calculi measuring up to 9 mm in size, with no evidence of hydronephrosis. She was also found to have 2 left renal calculi. Alternative treatment options have been reviewed, and the patient has elected to undergo cystoscopy, right retrograde pyelogram, right ureteroscopy with Holmium laser lithotripsy to determine if she has right ureteral obstruction and to remove the right renal calculi. - Constitutional Constitutional: Reports chills, Denies fever - Gastrointestinal Gastrointestinal: Denies nausea, Denies vomiting - Genitourinary (Female) Genitourinary: Reports flank pain, Reports kidney stones, Denies dysuria, Denies hematuria Past Medical History Additional Past Medical History / Comment(s): primary biliary cirrhosis History of Any Multi-Drug Resistant Organisms: None Reported Past Surgical History: Hysterectomy, Orthopedic Surgery Past Anesthesia/Blood Transfusion Reactions: No Reported Reaction Past Psychological History: No Psychological Hx Reported Past Alcohol Use History: None Reported Additional Past Alcohol Use History / Comment(s): Patient is a lifelong nonsmoker, no illicit drug use, no alcohol use. Patient was at home with her . 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 There are no pets in the home. She travels to [place] in the winter with her . Past Drug Use History: None Reported - Past Family History Mother History Unknown: Yes Family Medical History: Diabetes Mellitus, Hypertension Father History Unknown: Yes Additional Family Medical History / Comment(s): ALCOHOLISM Sister(s) Family Medical History: Cancer Additional Family Medical History / Comment(s): lung cancer Brother(s) Family Medical History: Cancer Additional Family Medical History / Comment(s): 1 w/ bone cancer, 1 w/ melanoma skin cancer Medications and Allergies Home Medications Medication Instructions Recorded Confirmed Type Ascorbic Acid [Vitamin C] 500 mg PO DAILY 03/25/18 07/08/20 History Cyanocobalamin [Vitamin B-12] 500 mcg PO DAILY 03/25/18 07/08/20 History Obeticholic Acid [Ocaliva] 5 mg PO DAILY 03/25/18 07/08/20 History Zolpidem [Ambien] 15 mg PO HS 03/25/18 07/08/20 History ursodioL [Ursodiol] 900 mg PO DAILY 03/25/18 07/08/20 History PARoxetine HCL [Paxil] 40 mg PO DAILY 04/10/19 07/08/20 History HYDROcodone/APAP 10-325MG [[place] 1 tab PO Q6HR PRN 07/08/20 07/08/20 History 10-325] Magnesium (Unknown Dose) 1 tab PO DAILY 07/08/20 History Multivitamins, Thera [Multivitamin 1 tab PO DAILY 07/08/20 07/08/20 History (formulary)] Omeprazole Magnesium [PriLOSEC OTC] 20 mg PO DAILY PRN 07/08/20 07/08/20 History Vitamin D3 (Unknown Dose) 1 tab PO DAILY 07/08/20 History Zinc (Unknown Dose) 1 tab PO DAILY 07/08/20 History Allergies Allergy/AdvReac Type Severity Reaction Status Date / Time No Known Allergies Allergy Verified 07/08/20 14:58 Surgical - Exam - General well developed, well nourished, no distress - Neck no masses, trachea midline - Respiratory normal respiratory effort, clear to auscultation - Cardiovascular Rhythm: regular Abnormal Heart Sounds: no systolic murmur, no diastolic murmur, no rub, no S3 G allop, no S4 Gallop, no click, no other - Abdomen Abdomen: soft, tender, no masses, no guarding, no rigid, no rebound - Psychiatric oriented to time, oriented to person, oriented to place, speech is normal, memory intact Results - Imaging CT scan - abdomen: report reviewed, image reviewed US - kidney/bladder: report reviewed Assessment and Plan (1) Unspecified hydronephrosis Status: Acute Code(s): N13.30 - UNSPECIFIED HYDRONEPHROSIS SNOMED Code(s): 48921302 (2) Calculus of kidney Status: Acute Code(s): N20.0 - CALCULUS OF KIDNEY SNOMED Code(s): 69418671 Plan: Cystoscopy, right retrograde pyelogram, right ureteroscopy with Holmium laser lithotripsy and possible stone basketing, right ureteral stent insertion. The procedure has been reviewed in detail with the patient. She is aware of potential risks, which include anesthesia, bleeding, infection, and ureteral injury. She is aware of the possible need for secondary treatment of both calculi cannot be adequately fragmented.
[~2020-07-18 06:49] MED LIST: DEXAMETHASONE SOD PHOSPHATE 10 MG/ML 1 ML VIAL IV ONE; LACTATED RINGERS 1,000 ML IV SCH; ONDANSETRON 4 MG/2 ML VIAL IVP ONE
--- NOTE | 2020-07-18 07:19 | XR ---
EXAMINATION TYPE: XR KUB DATE OF EXAM: 07/18/2020 Comparison: None Clinical History: 74-year-old female with right Renal Calculus, pre-op Findings: Mild overall stool burden. Gassy colon. Nonobstructive bowel gas pattern. Bowel content largely obscu res the renal shadows. Impression: Bowel content obscures the renal shadows. Gassy colon with mild stool burden.
[2020-07-18 08:05] VITALS: RESP 16
[2020-07-18] MEDS ORDERED: MIDAZOLAM 2 MG/2 ML VIAL IV ONE (08:35)
[2020-07-18] MEDS ORDERED: LIDOCAINE 1% (10MG/ML) FOR IV START INTRADERMA ONE (08:35)
[2020-07-18] MEDS ORDERED: KETOROLAC 15 MG/ML 1 ML VIAL ONE (08:57)
[2020-07-18] MEDS ORDERED: ROCURONIUM 10 MG/ML (5 ML VIAL) IV ONE (08:57)
[2020-07-18] MEDS ORDERED: hydrALAZINE HCL 20 MG/ML 1 ML VIAL ONE (08:57)
[2020-07-18] MEDS ORDERED: LIDOCAINE 1% INJ 10MG/ML (20 ML MDV) ONE (08:57)
[2020-07-18] MEDS ORDERED: GLYCOPYRROLATE 0.2 MG/ML 2 ML VIAL ONE (08:57)
[2020-07-18] MEDS ORDERED: HYDROmorphone (PF) 1 MG/ML ONE (08:57)
[2020-07-18] MEDS ORDERED: fentaNYL (PF) 50 MCG/ML 2 ML AMP ONE (08:57)
[2020-07-18] MEDS ORDERED: NEOSTIGMINE 1 MG/ML 10 ML VIAL ONE (08:57)
[2020-07-18] MEDS ORDERED: SUCCINYLCHOLINE CHLORIDE 100 MG/5 ML SYR IV ONE (08:57)
[2020-07-18] MEDS ORDERED: PROPOFOL 10 MG/ML 20 ML VIAL IV ONE (08:57)
[2020-07-18 09:01] LABS: Anisocytosis Slight; HCT 32.5 % (34.0-46.0); HGB 10.5 gm/dL (11.4-16.0); Hypochromasia Slight; MCH 28.2 pg (25.0-35.0); MCHC 32.3 g/dL (31.0-37.0); MCV 87.3 fL (80.0-100.0); Mean Platelet Volume 9.4; RBC 3.72 m/uL (3.80-5.40); RDW 16.5 % (11.5-15.5); WBC 1.7 k/uL (3.8-10.6)
[2020-07-18 09:08] LABS: Platelet Count 83 k/uL (150-450)
[2020-07-18] MEDS ORDERED: IOPAMIDOL-370 50ML BTL MISCELLANE ONE ×2 (09:15→09:21)
[2020-07-18] MEDS ORDERED: LACTATED RINGERS 1,000 ML IV ONE (10:25)
--- NOTE | 2020-07-18 10:45 | P.OP ---
Date of Procedure: 07/18/20 Preoperative Diagnosis: Right renal calculi Postoperative Diagnosis: Same Procedure(s) Performed: Cystoscopy, right retrograde pyelogram, right ureteroscopy with Holmium laser lithotripsy and stone basketing, right ureteral stent insertion Anesthesia: JORGE LUIS Surgeon: Josesito Bermudez Estimated Blood Loss (ml): 10 IV fluids (ml): 900 Pathology: none sent Condition: stable Disposition: PACU Indications for Procedure: The patient is a 74-year-old white female who reports right lower back pain. Renal ultrasound shows evidence of mild right pyelocaliectasis, as well as 2 right renal calculi measuring 5-6 mm in size. A computed tomography scan in March 2019 showed right renal calculi measuring up to 9 mm in size, with no evidence of hydronephrosis. She was also found to have 2 left renal calculi. Alternative treatment options have been reviewed, and the patient has elected to undergo cystoscopy, right retrograde pyelogram, right ureteroscopy with Holmium laser lithotripsy to determine if she has right ureteral obstruction and to remove the right renal calculi. Operative Findings: No evidence of hydronephrosis. Right lower pole calyceal calculus, fragmented completely. Description of Procedure: The patient was taken to the operating room and placed in the dorsolithotomy position, with legs supported in Thuan stirrups. The external genitalia was prepped and draped sterilely. The 30 lens was used to introduce the 21-[place] Berg cystoscopic sheath through the urethra and into the bladder under direct vision. The bladder was examined in its entirety. Both ureteral orifices were normal anatomic location and configuration, and clear urine effluxed from both. No tumors or foreign bodies were seen. Using a 10-[place] cone-tipped catheter, a right retrograde pyelogram was per formed in the standard fashion. The course of the right ureter appeared normal, with no filling defects or calculi seen. There was no evidence of hydronephrosis. A 0.038 inch Glidewire was passed through the cystoscope. The right ureteral orifice was cannulated, and the Glidewire was advanced up to the right renal pelvis. The cystoscope was removed, and an 11/13-[place] Islander ureteral access catheter was passed over the wire, up to the proximal ureter. The Berg CINEPASS flexible ureteroscope was passed through the ureteral access catheter sheath and advanced under direct vision into the right kidney. There appeared to be some narrowing of the ureteropelvic junction, which may give the appearance and radiographic imaging as hydronephrosis. Each calyx was examined. The only calculus seen was located within a lower pole calyx, measuring approximately 7 mm in size. It was not possible to perform lithotripsy in that location, and therefore a 1.9-[place] Islander nitinol basket was used to grasp the c alculus and relocated into the renal pelvis. The 200 micron Holmium laser probe was passed through the ureteroscope, and lithotripsy was performed. The majority of the lithotripsy was performed with the calculus within the basket, utilizing a dusting technique. The basket was then removed, and lithotripsy completed using a combination of dusting and basketing. 1 fragment which could not be adequately lasered was removed with the basket, though it proved to be a tiny fragment. Once lithotripsy was completed, the Glidewire was passed through the ureteroscope, which was removed along with the ureteral access catheter sheath. The Glidewire was backloaded into the cystoscope, which was passed into the bladder. A 22 cm, 6-[place] Islander double-J ureteral stent was placed over the wire. Proper stent positioning was verified fluoroscopically and endoscopically. The bladder was emptied and the cystoscope removed. The patient tolerated the procedure well and was taken to the recovery room in s table condition. DARBY COOK Report: Procedure Acuity: Elective Stone Size and Location: 7 mm, right lower pole calyx Ureteral Dilation: No Ureteral Access Sheath Used: Yes Stone Sent for Analysis: No All Stones/Fragments Were Removed with a Basket: No Complications: No Preoperative Antibiotics Given: Yes Stent Placed: Yes If Stent Placed, Was String Left Attached: No If Stent Placed, When is it to be Removed: 1 week Discharge Medications: None
[2020-07-18 10:46] VITALS: TEMP 97.4
[2020-07-18] MEDS: HYDROmorphone 0.5 MG/0.5 ML SYRINGE IVP PRN ×2 (10:57→11:07)
[2020-07-18 11:36] VITALS: PULSE 88
[2020-07-18 11:49] VITALS: BP 107/60
--- NOTE | 2020-07-18 14:53 | FL ---
Fluoroscopy HISTORY: Right renal calculi 64 seconds fluoroscopy time supplied to the referring clinician. 6 intraoperative C-arm images docum ent the procedure. See dictated report from urology.
== END 2020-07-18 12:20 | disposition home or self-care (01) ==
LOC: OR 06:49
PROVIDERS: ATTEND Urology
DX: N13.2 Hydronephrosis with renal and ureteral calculous obstruction (principal); K21.9 Gastro-esophageal reflux disease without esophagitis; K74.3 Primary biliary cirrhosis; Z79.899 Other long term (current) drug therapy; Z90.710 Acquired absence of both cervix and uterus; Z98.890 Other specified postprocedural states; Z83.3 Family history of diabetes mellitus; Z82.49 Family history of ischemic heart disease and other diseases of the circulatory system; Z80.1 Family history of malignant neoplasm of trachea, bronchus and lung; Z80.8 Family history of malignant neoplasm of other organs or systems
CPT/HCPCS: 85027; 74420; 74018; 52356; C1758; C1769; C2625; J2250; J0360; J1100; J2710; J0690; J2405; J2001; J3010; J1170 ×2; J1885; J0330; J2704; Q9967

== ENCOUNTER → 2020-07-31 | Outpatient (CLI) | payer MEDICARE ==
--- NOTE | 2020-07-31 14:58 | BD ---
EXAMINATION TYPE: Axial Bone Density DATE OF EXAM: 07/31/2020 COMPARISON: 05.25.2016 CLINICAL HISTORY: 74 YR OLD FEMALE.....ICD-10 CODE: Z78.0 ASYMPTOMATIC MENOPAUSE Height: 59.2 Weight: 99 FRAX RISK QUESTIONS: Family History (Parent hip fracture): NO FX Secondary Osteoporosis: YES 5. Chronic liver disease: YES, PBC RISK FACTORS HISTORY OF: Family History of Osteoporosis: YES, GRANDMOTHER AND AUNT Postmenopausal woman: YES ABOUT 54 Take estrogen and/or progesterone medications: YES, IN PAST FOR ABOUT 16 YRS Hyperparathyroidism: NO Adrenal Insufficiency: NO MEDICATIONS: Additional Medications: PAXIL, REFLUX MEDS, VIT D AND CALCIUM Additional History: REFLUX EXAM MEASUREMENTS: Bone mineral densitometry was performed using the [employer] System. Bone mineral density as measured about the Lumbar spine is: ----- L1-L4(G/cm2): 1.115 T Score Values are as follows: ----- L1: -0.9 ----- L2: -0.8 ----- L3: -0.6 ----- L4: -0.2 ----- L1-L4: -0.5 Bone mineral density has: Decreased -0.4% since study of: 05.25.2016 Bone mineral density about the R hip (g/cm2): 0.825 Bone mineral density about the L hip (g/cm2): 0.827 T Score values are as follows: -----R Neck: -1.9 -----L Neck: -1.9 -----R Total: -1.5 -----L Total: -1.4 Bone mineral density has: Decreased -4.3% since study of: 05.25.2016 FRAX%s: THERE IS A 10.6% CHANCE FOR A MAJOR OSTEOPOROTIC FX AND A 2.5% FOR HIP.....PROBABILITY FOR FX IN 10 YRS TIME IMPRESSION: Osteopenia (T Score between -2.5 and -1). There is slightly increased risk of fracture and the patient may be considered for treatment. Re-Screen 2-5 years. NOTE: T-SCORE=SD OF THE YOUNG ADULT MEAN.
--- NOTE | 2020-08-02 09:50 | MM ---
Reason for exam: screening (asymptomatic). Last mammogram was performed 1 year and 1 month ago. History: Patient is postmenopausal. Family history of breast cancer in paternal aunt and breast cancer in cousin. Took estrogen for 16 years beginning at age 43. Physical Findings: A clinical breast exam by your physician is recommended on an annual basis and results should be correlated with mammographic findings. MG 3D Screening Mammo W/Cad Bilateral CC and MLO view(s) were taken. Prior study comparison: June 21, 2019, right breast MG 3d work up w/cad RT. June 09, 2019, bilateral MG 3d screening mammo w/cad. The breast tissue is extremely dense which could obscure a lesion on mammography. No significant changes when compared with prior studies. ASSESSMENT: Benign, BI-RAD 2 RECOMMENDATION: Routine screening mammogram of both breasts in 1 year.
== END | disposition home or self-care (01) ==
LOC: RADMAMWWP 09:36
PROVIDERS: ATTEND Family Medicine
DX: Z12.31 Encounter for screening mammogram for malignant neoplasm of breast (principal); M85.80 Other specified disorders of bone density and structure, unspecified site; Z78.0 Asymptomatic menopausal state
CPT/HCPCS: 77063; 77067; 77080

== ENCOUNTER → 2020-07-31 | Outpatient (CLI) | payer MEDICARE ==
[2020-07-31 12:29] LABS: INR 0.9 (<1.2); Prothrombin Time 9.6 sec (9.0-12.0)
[2020-07-31 12:39] LABS: Basophils % (A) 1 %; Eosinophils # (A) 0.1 k/uL (0-0.7); Eosinophils % (A) 3 %; HCT 36.1 % (34.0-46.0); HGB 10.8 gm/dL (11.4-16.0); Hypochromasia Moderate; Lymphocytes # (A) 0.7 k/uL (1.0-4.8); Lymphocytes % (A) 30 %; MCH 26.9 pg (25.0-35.0); MCV 89.8 fL (80.0-100.0); Monocytes # (A) 0.2 k/uL (0-1.0); Monocytes % (A) 9 %; Neutrophils # (A) 1.2 k/uL (1.3-7.7); Neutrophils % (A) 55 %; Platelet Count 102 k/uL (150-450); RBC 4.02 m/uL (3.80-5.40); RDW 15.5 % (11.5-15.5); WBC 2.2 k/uL (3.8-10.6)
[2020-07-31 13:37] LABS: ALT 21 U/L (4-34); AST 33 U/L (14-36); African American GFR (CKD) >90 (>60 ml/min/1.73 sqM); Albumin/Globulin Ratio 1.2; Alkaline Phosphatase 155 U/L (38-126); Anion Gap 5 mmol/L; Bilirubin,Unconjugated 0.6 mg/dL (0.0-1.1); Blood Urea Nitrogen 15 mg/dL (7-17); Calcium 9.1 mg/dL (8.4-10.2); Carbon Dioxide 30 mmol/L (22-30); Chloride 106 mmol/L (98-107); Globulin 3.4 g/dL; Glucose 101 mg/dL (74-99); Non-African American GFR(CKD) 90 (>60 ml/min/1.73 sqM); Potassium 4.5 mmol/L (3.5-5.1); Sodium 141 mmol/L (137-145); Total Bilirubin 0.7 mg/dL (0.2-1.3); Total Protein 7.4 g/dL (6.3-8.2)
[2020-07-31 14:17] LABS: Cholesterol 207 mg/dL (<200); HDL Cholesterol 82 mg/dL (40-60); LDL Cholesterol,Calculated 101 mg/dL (0-99); Triglycerides 118 mg/dL (<150)
[2020-07-31 21:14] LABS: % Iron Saturation 10.11 (12.00-45.00); Iron 38 ug/dL (50-170); Total Iron Binding Capacity 376 ug/dL (228-460)
[2020-07-31 22:45] LABS: Ferritin 14.8 ng/mL (10.0-291.0)
== END | disposition home or self-care (01) ==
LOC: LABWHC1 10:29
PROVIDERS: ATTEND Internal Medicine Gastroenterology
DX: K74.3 Primary biliary cirrhosis (principal)
CPT/HCPCS: 36415; 80048; 80061; 80076; 82105; 82728; 83540; 83550; 85025; 85610

== ENCOUNTER → 2020-09-17 | Outpatient (CLI) | payer MEDICARE ==
--- NOTE | 2020-09-17 12:57 | US ---
EXAMINATION TYPE: US kidneys/renal and bladder DATE OF EXAM: 09/17/2020 COMPARISON: US 2019 CLINICAL HISTORY: 74-year-old female R31.9 HEMATURIA. Follow up kidney stones, patient states she had lithotripsy couple months ago TECHNIQUE: Multiple sonographic images of the kidneys and bladder. FINDINGS: EXAM MEASUREMENTS: Right Kidney: 8.5 x 6.0 x 4.1 cm Left Kidney: 9.9 x 4.0 x 4.7 cm Right Kidney: Minimal pelvicaliectasis. Left Kidney: No bienvenido hydronephrosis. 1.3cm cystic area superior pole Bladder: debris Bilateral Jets seen: yes Spleen: enlarged at 15.2cm with 2.0cm accessory spleen IMPRESSION: 1. Mild pelvicaliectasis appears to remain on the right, slightly improved from the appearance of 06/19. Both ureteral jets remain visualized. 2. Nonspecific debris in the bladder. Hemorrhagic and infectious debris are both possible. Correlate with urinalysis. 3. Incidental splenomegaly redemonstrated (15.2 cm).
== END | disposition home or self-care (01) ==
LOC: RADUSWWP 10:26
PROVIDERS: ATTEND Urology
DX: R16.1 Splenomegaly, not elsewhere classified (principal); N28.89 Other specified disorders of kidney and ureter
CPT/HCPCS: 76770

== ENCOUNTER → 2021-03-24 | Outpatient (CLI) | payer MEDICARE ==
[2021-03-24 19:41] LABS: HCT 33.8 % (37.2-46.3); HGB 10.6 g/dL (12.0-15.0); MCH 28.9 pg (27.0-32.0); MCHC 31.4 g/dL (32.0-37.0); MCV 92.1 fL (80.0-97.0); Mean Platelet Volume 12.6 fL (9.5-12.2); Platelet Count 70 X 10*3/uL (140-440); RBC 3.67 X 10*6/uL (4.10-5.20); WBC 1.58 X 10*3/uL (4.50-10.00)
== END | disposition home or self-care (01) ==
LOC: LABWHC1 11:30
PROVIDERS: ATTEND Internal Medicine Gastroenterology
DX: K74.3 Primary biliary cirrhosis (principal); K74.69 Other cirrhosis of liver; D64.89 Other specified anemias
CPT/HCPCS: 36415; 85027

== ENCOUNTER → 2021-08-13 | Outpatient (CLI) | payer MEDICARE ==
--- NOTE | 2021-08-18 10:13 | MM ---
Reason for exam: screening (asymptomatic). Last mammogram was performed 1 year ago. History: Patient is postmenopausal. Family history of breast cancer in paternal aunt and breast cancer in cousin. Took estrogen for 16 years beginning at age 43. Physical Findings: A clinical breast exam by your physician is recommended on an annual basis and results should be correlated with mammographic findings. MG 3D Screening Mammo W/Cad Bilateral CC and MLO view(s) were taken. Prior study comparison: July 31, 2020, bilateral MG 3d screening mammo w/cad. June 09, 2019, bilateral MG 3d screening mammo w/cad. May 09, 2018, bilateral MG 3d diag mammo w/cad [facility]. The breast tissue is extremely dense which could obscure a lesion on mammography. Benign bilateral oil cyst calcifications. No significant changes when compared with prior studies. ASSESSMENT: Benign, BI-RAD 2 RECOMMENDATION: Routine screening mammogram of both breasts in 1 year. Patient should continue monthly self breast exams. A negative report should not preclude additional follow up of suspicious palpable abnormalities. Consider supplementary screening ultrasound given the extremely dense breast tissue.
== END | disposition home or self-care (01) ==
LOC: RADMAMWWP 13:29
PROVIDERS: ATTEND Family Medicine
DX: Z12.31 Encounter for screening mammogram for malignant neoplasm of breast (principal); Z80.3 Family history of malignant neoplasm of breast; Z78.0 Asymptomatic menopausal state
CPT/HCPCS: 77063; 77067

== ENCOUNTER → 2022-05-05 | Outpatient (CLI) | payer MEDICARE ==
[2022-05-05 15:09] LABS: % Iron Saturation 19.86 (12.00-45.00); Albumin 4.1 g/dL (3.8-4.9); Albumin/Globulin Ratio 1.57 (1.60-3.17); Anion Gap 9.4 mmol/L (10.00-18.00); BUN/Creat Ratio 20.09 Ratio (12.00-20.00); Blood Urea Nitrogen 13.6 mg/dL (9.0-27.0); Calcium 8.6 mg/dL (8.7-10.3); Carbon Dioxide 24.8 mmol/L (20.0-27.5); Ferritin 28.1 ng/mL (10.0-291.0); Globulin 2.6 g/dL (1.6-3.3); Non-African American GFR(CKD) 86.3 (60.0-200.0); Potassium 4.9 mmol/L (3.5-5.5); Total Bilirubin 0.5 mg/dL (0.30-1.20); Total Protein 6.7 g/dL (6.2-8.2)
[2022-05-05 15:38] LABS: Basophils # (A) 0.03 X 10*3/uL (0.00-0.10); Basophils % (A) 0.8 %; Eosinophils # (A) 0.11 X 10*3/uL (0.04-0.35); Eosinophils % (A) 2.8 %; HGB 11.4 g/dL (12.0-15.0); Immature Grans, Automated 0.5 %; Immature Platelet Fraction 8.3 % (1.1-6.1); Lymphocytes # (A) 0.62 X 10*3/uL (0.90-5.00); Lymphocytes % (A) 15.5 %; MCH 28.4 pg (27.0-32.0); MCHC 30.8 g/dL (32.0-37.0); MCV 92.3 fL (80.0-97.0); Mean Platelet Volume 12.5 fL (9.5-12.2); Monocytes # (A) 0.32 X 10*3/uL (0.20-1.00); NRBC Per 100 WBC 0 /100 WBCS (0.0-0.0); Neutrophils # (A) 2.89 X 10*3/uL (1.80-7.70); Neutrophils % (A) 72.4 %; Platelet Count 70 X 10*3/uL (140-440); RBC 4.01 X 10*6/uL (4.10-5.20); RBC Morphology NORMAL; RDW 15.1 % (11.5-14.5); WBC 3.99 X 10*3/uL (4.50-10.00)
== END | disposition home or self-care (01) ==
LOC: LABWHC1 11:03
PROVIDERS: ATTEND Internal Medicine
DX: D61.818 Other pancytopenia (principal)
CPT/HCPCS: 36415; 80053; 82728; 83540; 83550; 85025

== ENCOUNTER → 2022-08-10 | Outpatient (CLI) | payer MEDICARE ==
[2022-08-11 00:58] LABS: Basophils # (A) 0.02 X 10*3/uL (0.00-0.10); Basophils % (A) 0.9 %; Eosinophils # (A) 0.05 X 10*3/uL (0.04-0.35); Eosinophils % (A) 2.3 %; HCT 38.3 % (37.2-46.3); HGB 12.1 g/dL (12.0-15.0); Immature Grans, Automated 0.5 %; Lymphocytes # (A) 0.57 X 10*3/uL (0.90-5.00); Lymphocytes % (A) 26.6 %; MCHC 31.6 g/dL (32.0-37.0); MCV 94.8 fL (80.0-97.0); Mean Platelet Volume 11.8 fL (9.5-12.2); NRBC Per 100 WBC 0 /100 WBCS (0.0-0.0); Neutrophils # (A) 1.19 X 10*3/uL (1.80-7.70); Neutrophils % (A) 55.7 %; Platelet Count 70 X 10*3/uL (140-440); RBC 4.04 X 10*6/uL (4.10-5.20); RDW 16.1 % (11.5-14.5); WBC 2.14 X 10*3/uL (4.50-10.00)
[2022-08-11 01:49] LABS: % Iron Saturation 18.73 (12.00-45.00); African American GFR (CKD) 100.6 (60.0-200.0); Albumin 4.3 g/dL (3.8-4.9); Albumin/Globulin Ratio 1.38 (1.60-3.17); Anion Gap 13.6 mmol/L (10.00-18.00); BUN/Creat Ratio 23.91 Ratio (12.00-20.00); Blood Urea Nitrogen 15.9 mg/dL (9.0-27.0); Calcium 9.2 mg/dL (8.7-10.3); Carbon Dioxide 24.7 mmol/L (20.0-27.5); Globulin 3.1 g/dL (1.6-3.3); Non-African American GFR(CKD) 86.8 (60.0-200.0); Potassium 4.1 mmol/L (3.5-5.5); Total Bilirubin 0.8 mg/dL (0.30-1.20); Total Protein 7.3 g/dL (6.2-8.2)
== END | disposition home or self-care (01) ==
LOC: LABWHC1 13:54
PROVIDERS: ATTEND Internal Medicine
DX: D64.9 Anemia, unspecified (principal)
CPT/HCPCS: 36415; 80053; 82728; 83540; 83550; 85025

== ENCOUNTER → 2022-08-13 | Outpatient (CLI) | payer MEDICARE ==
[2022-08-13 18:42] LABS: % Iron Saturation 24.68 (12.00-45.00); African American GFR (CKD) 98.9 (60.0-200.0); Albumin 4.2 g/dL (3.8-4.9); Albumin/Globulin Ratio 1.62 (1.60-3.17); Anion Gap 10.6 mmol/L (10.00-18.00); Bilirubin, Conjugated 0.21 mg/dL (0.20-0.40); Bilirubin,Unconjugated 0.49 mg/dL (0.20-1.00); Blood Urea Nitrogen 16.1 mg/dL (9.0-27.0); Carbon Dioxide 27.4 mmol/L (20.0-27.5); Globulin 2.6 g/dL (1.6-3.3); Magnesium 2.3 mg/dL (1.5-2.4); Non-African American GFR(CKD) 85.4 (60.0-200.0); Phosphorus 3.5 mg/dL (2.4-5.1); Potassium 4.6 mmol/L (3.5-5.5); Total Bilirubin 0.7 mg/dL (0.30-1.20); Total Protein 6.8 g/dL (6.2-8.2)
[2022-08-13 18:54] LABS: HGB 11.2 g/dL (12.0-15.0); Immature Platelet Fraction 8.4 % (1.1-6.1); MCH 29.9 pg (27.0-32.0); MCV 93.3 fL (80.0-97.0); Mean Platelet Volume 11.1 fL (9.5-12.2); NRBC Per 100 WBC 0 /100 WBCS (0.0-0.0); Platelet Count 70 X 10*3/uL (140-440); RBC 3.75 X 10*6/uL (4.10-5.20); RDW 15.6 % (11.5-14.5)
[2022-08-13 19:06] LABS: INR 0.92 (0.90-1.11); Prothrombin Time 10.2 sec (9.9-11.9)
== END | disposition home or self-care (01) ==
LOC: LABWHC1 12:26
PROVIDERS: ATTEND Internal Medicine Gastroenterology
DX: K74.3 Primary biliary cirrhosis (principal); D50.9 Iron deficiency anemia, unspecified
CPT/HCPCS: 36415; 80048; 80076; 82105; 82607; 82728; 83540; 83550; 83735; 84100; 84443; 85027; 85610

== ENCOUNTER → 2022-08-14 | Outpatient (CLI) | payer MEDICARE ==
--- NOTE | 2022-08-14 09:44 | BD ---
EXAMINATION TYPE: Axial Bone Density DATE OF EXAM: 08/14/2022 COMPARISON: 05.25.2016 CLINICAL HISTORY: 76 years year old Female. ICD-10 CODE: Z78.0 asymptomatic menopausal Height: 59.5IN Weight: 102 FRAX RISK QUESTIONS: Secondary Osteoporosis: 5. Chronic liver disease: YES RISK FACTORS HISTORY OF: Surgery to Wrist (right): YES, FUSION When: 20 YEARS AGO Family History of Osteoporosis: YES Active: YES Postmenopausal woman: YES Take estrogen and/or progesterone medications: YES, NONE CURRENT How long: ABOUT 5 YEARS Poor Health: FAIR MEDICATIONS: Additional Medications: LIVER MEDS, ANXIETY MEDS, CALCIUM AND VITAMIN D Additional History: CIRRHOSIS EXAM MEASUREMENTS: Bone mineral densitometry was performed using the [employer] System. Bone mineral density as measured about the Lumbar spine is: ----- L1-L4(G/cm2): 1.123 T Score Values are as follows: ----- L1: -0.9 ----- L2: -0.5 ----- L3: -0.7 ----- L4: -0.2 ----- L1-L4: -0.5 Bone mineral density has: Increased 0.1% since study of: 05.25.2016 Bone mineral density about the R hip (g/cm2): 0.777 Bone mineral density about the L hip (g/cm2): 0.822 T Score values are as follows: -----R Neck: -2.1 -----L Neck: -1.9 -----R Total: -1.8 -----L Total: -1.5 Bone mineral density has: Decreased -7.3% since study of: 05.25.2016 FRAX%s: The graph provided illustrates a 11.8% chance for a major osteoporotic fx and a 3.3% chance f or the hips probability for fx in 10 years time. IMPRESSION: Osteopenia (T Score between -2.5 and -1). There is slightly increased risk of fracture and the patient may be considered for treatment. Re-Screen 2-5 years. NOTE: T-SCORE=SD OF THE YOUNG ADULT MEAN.
--- NOTE | 2022-08-17 09:13 | MM ---
Reason for Exam: Screening (asymptomatic). Last screening mammogram was performed 12 month(s) ago. Patient History: Menarche at age 15. First Full-Term at age 22. Hysterectomy at age 37. Postmenopausal. Estrogen for 16 years from age 43 until age 59. Maternal cousin had breast cancer. Paternal aunt had breast cancer. Risk Values: Guerda 5 year model risk: 1.6%. NCI Lifetime model risk: 3.7%. Prior Study Comparison: 05/09/2018 Bilateral Diagnostic Mammogram, [facility]. 06/09/2019 Bilateral Screening Mammogram, [facility]. 06/21/2019 Right Diagnostic Mammogram, [facility]. 07/31/2020 Bilateral Screening Mammogram, [facility]. 08/13/2021 Bilateral Screening Mammogram, [facility]. Tissue Density: The breast tissue is heterogeneously dense. This may lower the sensitivity of mammography. Findings: Analyzed By CAD. There is no suspicious group of microcalcifications or new suspicious mass in either breast. Benign-appearing calcific patient's bilaterally. Overall Assessment: Benign, BI-RAD 2 Management: Screening Mammogram of both breasts in 1 year. A clinical breast exam by your physician is recommended on an annual basis and results should be correlated with mammographic findings. [facility] will attempt to contact patient to return for supplemental views and ultrasound if indicated. Electronically signed and approved by: Jeff Medrano DO
== END | disposition home or self-care (01) ==
LOC: RADBDWWP 08:39
PROVIDERS: ATTEND Family Medicine
DX: M85.80 Other specified disorders of bone density and structure, unspecified site (principal)
CPT/HCPCS: 77063; 77067; 77080

== ENCOUNTER → 2023-07-22 | Outpatient (CLI) | payer MEDICARE ==
[2023-07-22 21:06] LABS: % Iron Saturation 15.97 (12.00-45.00)
[2023-07-22 23:49] LABS: Basophils # (A) 0.01 X 10*3/uL (0.00-0.10); Basophils % (A) 0.5 %; Eosinophils # (A) 0.08 X 10*3/uL (0.04-0.35); Eosinophils % (A) 3.8 %; HCT 38.5 % (37.2-46.3); HGB 11.8 d/dL (12.0-15.0); Immature Platelet Fraction 9.1 % (1.1-6.1); Lymphocytes # (A) 0.64 X 10*3/uL (0.90-5.00); Lymphocytes % (A) 30.5 %; MCH 29.8 pg (27.0-32.0); MCHC 30.6 d/dL (32.0-37.0); MCV 97.2 FL (80.0-97.0); Mean Platelet Volume 12.2 FL (9.5-12.2); Monocytes # (A) 0.31 X 10*3/uL (0.20-1.00); Monocytes % (A) 14.8 %; NRBC Per 100 WBC 0 X 10*3/uL (0.00-0.01); Neutrophils # (A) 1.05 X 10*3/uL (1.80-7.70); Neutrophils % (A) 49.9 %; Platelet Count 64 X 10*3/uL (140-440); RBC 3.96 X 10*6/uL (4.10-5.20)
== END | disposition home or self-care (01) ==
LOC: LABWHC1 16:07
PROVIDERS: ATTEND Internal Medicine Gastroenterology
DX: D50.9 Iron deficiency anemia, unspecified (principal)
CPT/HCPCS: 36415; 82728; 83540; 83550; 85025

== ENCOUNTER → 2023-09-22 | Outpatient (CLI) | payer MEDICARE ==
--- NOTE | 2023-09-23 09:19 | MM ---
Reason for Exam: Screening (asymptomatic). Last mammogram was performed 1 year(s) and 2 month(s) ago. Patient History: Menarche at age 15. First Full-Term at age 22. Hysterectomy at age 37. Postmenopausal. Estrogen for 16 years from age 43 until age 59. Maternal cousin had breast cancer. Paternal aunt had breast cancer. Risk Values: Guerda 5 year model risk: 1.6%. NCI Lifetime model risk: 3.4%. Prior Study Comparison: 04/30/2017 Bilateral Diagnostic Mammogram, [facility]. 05/09/2018 Bilateral Diagnostic Mammogram, [facility]. 06/09/2019 Bilateral Screening Mammogram, [facility]. 06/21/2019 Right Diagnostic Mammogram, [facility]. 07/31/2020 Bilateral Screening Mammogram, [facility]. 08/13/2021 Bilateral Screening Mammogram, [facility]. 08/14/2022 Bilateral MG 3D screening mammo w/cad, [facility]. Tissue Density: The breast tissue is extremely dense which could obscure a lesion on mammography. Findings: Analyzed By CAD. Pattern appears symmetrical and stable. Multiple benign spherical calcifications are present bilaterally. No significant interval change is evident. No suspicious groups of microcalcifications, spiculated or lobular masses, architectural distortion or other secondary signs of malignancy are mammographically apparent. Overall Assessment: Benign, BI-RAD 2 Management: Screening Mammogram of both breasts in 1 year. A negative mammogram report should not preclude additional follow up of suspicious palpable abnormalities. Patient should continue monthly self breast exam. A clinical breast exam by your physician is recommended on an annual basis and results should be correlated with mammographic findings. Electronically signed and approved by: David Stewart D.O. Radiologis
== END | disposition home or self-care (01) ==
LOC: RADMAMWWP 09:35
PROVIDERS: ATTEND Family Medicine
DX: Z12.31 Encounter for screening mammogram for malignant neoplasm of breast (principal); Z78.0 Asymptomatic menopausal state; Z80.3 Family history of malignant neoplasm of breast
CPT/HCPCS: 77063; 77067

== ENCOUNTER → 2024-05-25 | Outpatient (CLI) | payer MEDICARE ==
[2024-05-25 11:16] LABS: Basophils % (A) 1 %; Eosinophils # (A) 0.1 k/uL (0-0.7); Eosinophils % (A) 4 %; HCT 38.5 % (34.0-46.0); HGB 12.2 gm/dL (11.4-16.0); Lymphocytes # (A) 0.5 k/uL (1.0-4.8); Lymphocytes % (A) 25 %; MCH 30.3 pg (25.0-35.0); MCHC 31.7 g/dL (31.0-37.0); MCV 95.4 fL (80.0-100.0); Mean Platelet Volume 9.9; Monocytes # (A) 0.2 k/uL (0-1.0); Monocytes % (A) 11 %; Neutrophils # (A) 1.1 k/uL (1.3-7.7); Neutrophils % (A) 58 %; RBC 4.04 m/uL (3.80-5.40); RDW 14.2 % (11.5-15.5); WBC 1.8 k/uL (3.8-10.6)
[2024-05-25 14:12] LABS: Platelet Count 60 k/uL (150-450); RBC Morphology Normal
== END | disposition home or self-care (01) ==
LOC: LABWHC1 10:29
PROVIDERS: ATTEND Internal Medicine
DX: D61.818 Other pancytopenia (principal); D64.89 Other specified anemias; D50.9 Iron deficiency anemia, unspecified; R16.1 Splenomegaly, not elsewhere classified
CPT/HCPCS: 36415; 85025

== ENCOUNTER → 2025-03-26 | Outpatient (CLI) | payer MEDICARE ==
[2025-03-26 15:37] LABS: % Iron Saturation 22.19 (12.00-45.00); ALT 38 U/L (8-44); AST 45 U/L (13-35); Albumin/Globulin Ratio 1.38 Ratio (1.60-3.17); Alkaline Phosphatase 180 U/L (41-126); BUN/Creat Ratio 23.75 Ratio (12.00-20.00); Chloride 105 mmol/L (96-109); Globulin 2.9 g/dL (1.6-3.3); Glucose 164 mg/dL (70-110); Iron 79 UG/DL (50-170); Potassium 5.1 mmol/L (3.5-5.5); Sodium 142 mmol/L (135-145); Total Bilirubin 0.8 mg/dL (0.3-1.2); Total Iron Binding Capacity 356 UG/DL (228-460); Total Protein 6.9 g/dL (6.2-8.2)
[2025-03-26 15:51] LABS: HCT 38.1 % (37.2-46.3); Immature Platelet Fraction 9.4 % (1.1-6.1); MCH 30.4 pg (27.0-32.0); MCHC 31.5 g/dL (32.0-37.0); MCV 96.5 FL (80.0-97.0); Mean Platelet Volume 12.3 FL (9.5-12.2); NRBC Per 100 WBC 0 X 10*3/uL (0.00-0.01); Platelet Count 65 X 10*3/uL (140-440); RBC 3.95 X 10*6/uL (4.10-5.20); RDW 13.9 % (11.5-14.5); WBC 2.17 X 10*3/uL (4.50-10.00)
[2025-03-26 15:52] LABS: Basophils # (A) 0.03 X 10*3/uL (0.00-0.10); Basophils % (A) 1.4 %; Eosinophils # (A) 0.11 X 10*3/uL (0.04-0.35); Eosinophils % (A) 5.1 %; Lymphocytes # (A) 0.62 X 10*3/uL (0.90-5.00); Lymphocytes % (A) 28.6 %; Monocytes # (A) 0.27 X 10*3/uL (0.20-1.00); Monocytes % (A) 12.4 %; Neutrophils # (A) 1.13 X 10*3/uL (1.80-7.70)
[2025-03-26 16:00] LABS: Reticulocyte % 1.81 % (0.10-1.80)
== END | disposition home or self-care (01) ==
LOC: LABWHC1 10:59
PROVIDERS: ATTEND Internal Medicine
DX: D50.9 Iron deficiency anemia, unspecified (principal); D61.818 Other pancytopenia
CPT/HCPCS: 36415; 80053; 82728; 83540; 83550; 85025; 85045